=== PATIENT | female | born 1975 | race American Indian/Alaskan Native ===

== ENCOUNTER 2017-03-11 03:50 | Emergency (ER) | payer MEDICAID ==
[2017-03-11 06:03] LABS: Alanine Aminotransferase 11 units/L (7-56); Albumin 4.3 g/dL (3.9-5); Albumin/Globulin Ratio 1.2 %; Alkaline Phosphatase 105 units/L (35-129); Anion Gap 18 mmol/L; Blood Urea Nitrogen 8 mg/dL (7-17); Calcium 9.7 mg/dL (8.4-10.2); Carbon Dioxide 24 mmol/L (22-30); Chloride 102.5 mmol/L (98-107); Glucose 115 mg/dL (65-100); Lipase 29 units/L (13-60); Potassium 4.1 mmol/L (3.6-5.0); Sodium 140 mmol/L (137-145); Total Protein 7.8 g/dL (6.3-8.2)
[2017-03-11 06:07] LABS: Basophils % (Auto) 0.4 % (0.0-1.8); Eosinophils % (Auto) 0.6 % (0.0-4.3); Hematocrit 26.4 % (30.3-42.9); Hemoglobin 7.9 gm/dl (10.1-14.3); Mean Corpuscular HGB Conc 30 % (30-34); Mean Corpuscular Hemoglobin 19 pg (28-32); Mean Corpuscular Volume 65 fl (79-97); Platelet Count 352 K/mm3 (140-440); Red Blood Count 4.05 M/mm3 (3.65-5.03); Red Cell Distribution Width 19.5 % (13.2-15.2); White Blood Count 9.7 K/mm3 (4.5-11.0)
[2017-03-11 07:53] LABS: Bacteria,Urine 2+ /HPF (Negative); Bilirubin,Urine NEG (Negative); Blood,Urine MOD (Negative); Ketones,Urine NEG (Negative); Leukocyte Esterase,Urine NEG (Negative); Mucus,Urine FEW /HPF; Nitrite,Urine NEG (Negative); Urobilinogen,Urine < 2.0 mg/dL (<2.0)
[2017-03-11] MEDS ORDERED: MORPHINE IV ONE (10:55)
[2017-03-11] MEDS ORDERED: NACL 0.9% 1000 ML 2,000 ML IV ONE (10:55)
[2017-03-11] MEDS ORDERED: TORADOL IV ONE (10:55)
[2017-03-11] MEDS ORDERED: ROCEPHIN/NS 1 GM/50 ML 1 GM/50 ML BAG IV ONE (10:55)
[2017-03-11] MEDS ORDERED: ZOFRAN IV ONE (10:55)
--- NOTE | 2017-03-11 10:57 | Emergency Department Report ---
ED General Adult HPI - General Chief complaint: Abdominal Pain Stated complaint: ABD PAIN/VOMITING/BACK PAIN Time Seen by Provider: 03/11/17 10:45 Source: patient, RN notes reviewed Mode of arrival: Ambulatory Limitations: No Limitations - History of Present Illness Initial comments: This is a 41-year-old female. She is previously unknown to me. She does not have a primary care doctor. She does not currently have a director of clinical applications. She reports that she is not . She reports a past medical history of sinusitis, possible irritable bowel syndrome, possible ulcerative colitis (reports that she was being worked up at [place] but has not had a colonoscopy." The patient presents to the ER with back pain, diarrhea, weakness, nausea and vomiting. The back pain is in the right flank, and radius down to the right flank and right lower quadrant. The back pain is achy and sharp. It increases with percussion. It decreases with rest. denies fever. There is no chest pain. There is no shortness of breath. The patient admits to some urinary frequency, but denies dysuria. She denies hematemesis, bright red blood per rectum. She is not certain if she has heavy menstruation. The pain has been present since yesterday. -: Gradual Location: back Radiation: abdomen Severity scale (0 -10): 9 Quality: aching Consistency: constant Improves with: rest Worsens with: movement Associated Symptoms: loss of appetite, malaise, nausea/vomiting, weakness. denies: confusion, chest pain, cough, diaphoresis, fever/chills - Related Data Previous Rx's Medication Instructions Recorded Last Taken Type Ketorolac [Toradol] 10 mg PO Q6H PRN #20 tablet 03/11/17 Unknown Rx Levofloxacin [Levaquin] 750 mg PO QDAY #10 tablet 03/11/17 Unknown Rx Metoclopramide [Reglan] 10 mg PO QID PRN #30 tablet 03/11/17 Unknown Rx Tamsulosin [Flomax] 0.4 mg PO QDAY #30 cap 03/11/17 Unknown Rx oxyCODONE [Roxicodone] 5 mg PO Q6HR PRN #20 tablet 03/11/17 Unknown Rx Allergies Allergy/AdvReac Type Severity Reaction Status Date / Time amoxicillin trihydrate Allergy Shortness Verified 03/11/17 05:00 [From Augmentin] of Breath potassium clavulanate Allergy Shortness Verified 03/11/17 05:00 [From Augmentin] of Breath ED Review of Systems ROS: Stated complaint: ABD PAIN/VOMITING/BACK PAIN Other details as noted in HPI Constitutional: malaise. denies: fever Eyes: denies: vision change ENT: denies: epistaxis Respiratory: denies: cough Cardiovascular: denies: chest pain Gastrointestinal: abdominal pain, nausea Genitourinary: as per HPI Musculoskeletal: back pain Skin: denies: lesions Neurological: weakness Psychiatric: as per HPI ED Past Medical Hx - Past Medical History Previous Medical History?: Yes Hx Kidney Stones: Yes Additional medical history: Irritable Bowel syndrome, chronic sinusitis - Social History Smoking Status: Unknown if ever smoked - Medications Home Medications: Home Medications Medication Instructions Recorded Confirmed Last Taken Type Ketorolac [Toradol] 10 mg PO Q6H PRN #20 tablet 03/11/17 Unknown Rx Levofloxacin [Levaquin] 750 mg PO QDAY #10 tablet 03/11/17 Unknown Rx Metoclopramide [Reglan] 10 mg PO QID PRN #30 tablet 03/11/17 Unknown Rx Tamsulosin [Flomax] 0.4 mg PO QDAY #30 cap 03/11/17 Unknown Rx oxyCODONE [Roxicodone] 5 mg PO Q6HR PRN #20 tablet 03/11/17 Unknown Rx ED Physical Exam - General Limitations: No Limitations General appearance: alert, in no apparent distress - Head Head exam: Present: atraumatic, normocephalic - Eye Eye exam: Present: normal appearance, EOMI. Absent: nystagmus - ENT ENT exam: Present: normal exam, normal orophraynx, mucous membranes moist, normal external ear exam - Neck Neck exam: Present: normal inspection, full ROM. Absent: tenderness, meningismus - Respiratory Respiratory exam: Present: normal lung sounds bilaterally. Absent: respiratory distress, wheezes, rales, rhonchi, stridor, chest wall tenderness, accessory muscle use, decreased breath sounds, prolonged expiratory - Cardiovascular Cardiovascular Exam: Present: regular rate, normal rhythm, normal heart sounds. Absent: bradycardia, tachycardia, irregular rhythm, systolic murmur, diastolic murmur, rubs, gallop - GI/Abdominal GI/Abdominal exam: Present: soft, tenderness, normal bowel sounds, other (there is no right lower quadrant tenderness. There is minimal right flank tenderness. ). Absent: distended, guarding, rebound, rigid, pulsatile mass - Rectal Rectal exam: Present: normal inspection, normal rectal tone, heme (-) stool, other (during rectal examination, I am escorted by nurse ESTELA SALEEM) - External exam: Present: normal external exam Speculum exam: Present: normal speculum exam. Absent: cervical discharge, vaginal bleeding Bi-manual exam: Present: normal bi-manual exam, other (escorted by nurse ESTELA SALEEM). Absent: cervical motion tendernes, adnexal tenderness, adnexal mass, uterine enlargement, uterine tenderness - Extremities Exam Extremities exam: Present: normal inspection, full ROM, normal capillary refill. Absent: tenderness, pedal edema, joint swelling, calf tenderness - Back Exam Back exam: Present: normal inspection, full ROM. Absent: tenderness, CVA tenderness (R), CVA tenderness (L), muscle spasm, paraspinal tenderness, vertebral tenderness - Neurological Exam Neurological exam: Present: alert, oriented X3, other (Extraocular movements intact. Tongue midline. No facial droop. Facial sensation intact to light touch in the V1, V2, V3 distribution bilaterally. 5 and 5 strength in 4 extremities.. Sensation is intact to light touch in 4 extremities.). Absent: motor sensory deficit - Psychiatric Psychiatric exam: Present: normal affect, normal mood - Skin Skin exam: Present: warm, dry, intact, normal color. Absent: rash ED Course Vital Signs 03/11/17 03/11/17 03/11/17 05:02 10:20 10:30 Temperature 98.4 F Pulse Rate 89 Respiratory 20 Rate Blood Pressure 138/96 148/80 Blood Pressure [Right] O2 Sat by Pulse 99 100 100 Oximetry 03/11/17 03/11/17 03/11/17 10:31 10:42 11:08 Temperature 98.5 F Pulse Rate 77 Respiratory 20 20 Rate Blood Pressure 136/87 Blood Pressure 136/87 [Right] O2 Sat by Pulse 100 100 100 Oximetry 03/11/17 03/11/17 03/11/17 11:52 11:53 13:01 Temperature Pulse Rate Respiratory 20 20 Rate Blood Pressure 136/87 Blood Pressure [Right] O2 Sat by Pulse Oximetry 0503/11/17 03/11/17 13:17 13:30 14:30 Temperature Pulse Rate Respiratory 18 Rate Blood Pressure 158/85 138/97 Blood Pressure [Right] O2 Sat by Pulse 100 Oximetry 03/11/17 03/11/17 15:26 15:38 Temperature Pulse Rate Respiratory Rate Blood Pressure 138/97 138/97 Blood Pressure [Right] O2 Sat by Pulse Oximetry - Reevaluation(s) Reevaluation #1: 03/11/17 12:55 CT scan demonstrates obstructing calculus. Patient reexamined. Still having some pain. This hospital does not have urology on-call. I have placed a call for urology consultation through the [facility] Reevaluation #2: 03/11/17 13:25 Case is discussed with [facility] on-call, Dr. Mauri Cee. I have specifically discussed the patient's physical exam findings, laboratory studies, CT scan findings and urinalysis with him. He indicates that females can have bacteria in the urine, but based on her white count, current symptoms, lack of fever, current ability to tolerate liquid feeds, he does not feel that she requires transfer or emergent surgical intervention. He recommends tamsulosin, pain medication, nausea medication. He does not think that antibiotics are necessary per se. Patient is feeling improved. She will be discharged with pain medication, nausea medication, tamsulosin, empiric antibiotics, and she will be instructed to follow-up with urology within the week. Return precautions are reviewed. 03/11/17 18:51 ED Medical Decision Making - Lab Data Result diagrams: 03/11/17 05:03/11/17 05:29 Vital Signs 03/11/17 03/11/17 03/11/17 05:02 10:31 10:42 Temperature 98.4 F 98.5 F Pulse Rate 89 77 Respiratory 20 20 20 Rate Blood Pressure 138/96 Blood Pressure 136/87 [Right] O2 Sat by Pulse 99 100 100 Oximetry Lab Results 03/11/17 03/11/17 03/11/17 Range/Units 05: 05:29 Unknown WBC 9.7 (4.5-11.0) K/mm3 RBC 4.05 (3.65-5.03) M/mm3 Hgb 7.9 L (10.1-14.3) gm/dl Hct 26.4 L (30.3-42.9) % MCV 65 L (79-97) fl MCH 19 L (28-32) pg MCHC 30 (30-34) % RDW 19.5 H (13.2-15.2) % Plt Count 352 (140-440) K/mm3 Lymph % (Auto) 12.0 L (13.4-35.0) % [place] % (Auto) 5.9 (0.0-7.3) % Eos % (Auto) 0.6 (0.0-4.3) % Baso % (Auto) 0.4 (0.0-1.8) % Lymph # 1.2 (1.2-5.4) K/mm3 [place] # 0.6 (0.0-0.8) K/mm3 Eos # 0.1 (0.0-0.4) K/mm3 Baso # 0.0 (0.0-0.1) K/mm3 Seg Neutrophils % 81.1 H (40.0-70.0) % Seg Neutrophils # 7.9 H (1.8-7.7) K/mm3 Sodium 140 (137-145) mmol/L Potassium 4.1 (3.6-5.0) mmol/L Chloride 102.5 (98-107) mmol/L Carbon Dioxide 24 (22-30) mmol/L Anion Gap 18 mmol/L BUN 8 (7-17) mg/dL Creatinine 0.8 (0.7-1.2) mg/dL Estimated GFR > 60 ml/min BUN/Creatinine Ratio 10.00 % Glucose 115 H (65-100) mg/dL Calcium 9.7 (8.4-10.2) mg/dL Total Bilirubin 0.50 (0.1-1.2) mg/dL AST 16 (5-40) units/L ALT 11 (7-56) units/L Alkaline Phosphatase 105 (35-129) units/L Total Protein 7.8 (6.3-8.2) g/dL Albumin 4.3 (3.9-5) g/dL Albumin/Globulin Ratio 1.2 % Lipase 29 (13-60) units/L Urine Color Yellow (Yellow) Urine Turbidity Clear (Clear) Urine pH 6.0 (5.0-7.0) Ur Specific [place] 1.017 (1.003-1.030) Urine Protein 30 mg/dl (Negative) mg/dL Urine Glucose (UA) Neg (Negative) mg/dL Urine Ketones Neg (Negative) mg/dL Urine Blood Mod (Negative) Urine Nitrite Neg (Negative) Urine Bilirubin Neg (Negative) Urine Urobilinogen < 2.0 (<2.0) mg/dL Ur Leukocyte Esterase Neg (Negative) Urine WBC (Auto) 9.0 H (0.0-6.0) /HPF Urine RBC (Auto) 105.0 (0.0-6.0) /HPF U Epithel Cells (Auto) 2.0 (0-13.0) /HPF Urine Bacteria (Auto) 2+ (Negative) /HPF Urine Mucus Few /HPF Urine HCG, Qual Negative (Negative) - Radiology Data Radiology results: pending, report reviewed, image reviewed CT scan of the abdomen and pelvis with IV contrast: There is a 5 x 5 x 6 cm stone noted in the right mid ureter at the level of L2- L3. There is a string right hydronephrosis. Bladder is unremarkable. There is no evidence of pyelonephritis. Appendix not identified. Impression: Mid right ureteral stone as described, mildly obstructing. - Medical Decision Making Differential diagnosis: Renal colic, pyelonephritis, appendicitis, IBS, ulcerative colitis, diverticulitis Assessment and plan: 41-year-old female with flank pain, abdominal pain, nausea , vomiting, weakness, CVA tenderness, does not have classic irritative urinary symptoms, urinalysis equivocal for UTI, probable renal colic. The patient will be treated empirically with ceftriaxone. She reports hives with amoxicillin. As a third generation cephalosporin, ceftriaxone is structurally dissimilar from amoxicillin, and the patient is as likely to have an allergic reaction to a third generation cephalosporin, that she would be to an alternative agent such as a fluoroquinolone. The patient is noted to have a microcytic anemia, there is no history of hematemesis or bright red blood per rectum, this is most likely secondary to menstruation, she does not have any vaginal bleeding or rectal bleeding this time. She can be started on her sulfate for this, as she is essentially asymptomatic. We will obtain a CT scan of the abdomen and pelvis with IV contrast, treat her symptomatically, and reassess. Critical care attestation.: If time is entered above; I have spent that time in minutes in the direct care of this critically ill patient, excluding procedure time. ED Disposition Clinical Impression: Renal colic on right side Disposition: DISCHARGED TO HOME OR SELFCARE Is pt being admited?: No Does the pt Need Aspirin: No Condition: Stable Instructions: Renal Colic (ED) Additional Instructions: Take the pain medication, nausea medication, tamsulosin, antibiotics as directed. Cultures were sent. Results will be available in the next 3-5 days. Have a primary care doctor or urology specialist contact the medical records department to obtain culture results. Follow up in 48 hours for a repeat check. You may follow up with the primary care doctor, urologist, or return to the ER for a repeat check. Return to the ER right away with new pain, worsened pain, migration of pain, fever, chills, confusion, intractable nausea or vomiting, inability to tolerate liquid feeds. Dr. Maldonado is a local urology specialist. Dr. Zia Singh is a local primary care doctor. Prescriptions: Ketorolac [Toradol] 10 mg PO Q6H PRN #20 tablet PRN Reason: Pain Levofloxacin [Levaquin] 750 mg PO QDAY #10 tablet Metoclopramide [Reglan] 10 mg PO QID PRN #30 tablet PRN Reason: Nausea oxyCODONE [Roxicodone] 5 mg PO Q6HR PRN #20 tablet PRN Reason: Pain Tamsulosin [Flomax] 0.4 mg PO QDAY #30 cap Referrals: JUDY CLEVELAND MD [Staff Physician] - 3-5 Days NANY SAHU MD [Staff Physician] - 3-5 Days
--- NOTE | 2017-03-11 11:45 | Cat Scan Report ---
CT SCAN OF THE ABDOMEN AND PELVIS WITH CONTRAST: HISTORY: Right flank pain. TECHNIQUE: Helical CT in 1.25mm intervals following IV contrast. Sagittal and coronal reconstructions. FINDINGS: The liver is normal in size and is without focal defect. No gallstones or biliary dilatation are noted. The spleen and pancreas demonstrate a normal size and attenuation with no evidence of abnormal mass. A 5 x 5 x 6 cm calculus is identified in the mid right ureter at the level of L2-3. There is mild upstream right hydronephrosis. 2 or 3 additional calyceal stones are noted in each kidney measuring up to 3 mm. The bladder is unremarkable. No evidence for pyelonephritis. The adrenal glands are normal. There is no intestinal obstruction or ascites. The appendix is not confidently identified, correlate with surgical history. The abdominal aorta is normal. No abnormalities are identified within the retroperitoneum or mesentery. The uterus and adnexa are unremarkable. There is no evidence of peritoneal air or fluid. There is no evidence of any abnormal masses or fluid collections within the pelvis. No adenopathy is identified. IMPRESSION: Mid right ureteral stone as described, mildly obstructing.
[2017-03-11] MEDS ORDERED: DILAUDID IV ONE (12:56)
[2017-03-11 15:56] VITALS: BP 138/97
== END 2017-03-11 15:55 | disposition home or self-care (01) ==
LOC: ED 03:50
DX: N23 Unspecified renal colic (principal); J32.9 Chronic sinusitis, unspecified; Z88.8 Allergy status to other drugs, medicaments and biological substances
CPT/HCPCS: 36415; 74177; 80053; 81001; 81025; 83690; 85025; 87086; 87210; 87591; 96365; 96375; 99285; J0696; J1170; J1885; J2270; J2405; J7030; Q9967

== ENCOUNTER 2017-10-14 22:27 | Emergency (ER) | payer MEDICAID ==
[2017-10-14 22:38] VITALS: BP 159/95
[2017-10-14] MEDS ORDERED: TORADOL IV ONE (22:54)
[2017-10-14] MEDS ORDERED: ZOFRAN IV ONE (22:55)
[2017-10-14 23:32] LABS: Basophils # (Auto) 0.1 K/mm3 (0.0-0.1); Basophils % (Auto) 0.6 % (0.0-1.8); Eosinophils # (Auto) 0.5 K/mm3 (0.0-0.4); Eosinophils % (Auto) 4.9 % (0.0-4.3); Lymphocytes # (Auto) 3.6 K/mm3 (1.2-5.4); Lymphocytes % (Auto) 39.5 % (13.4-35.0); Mean Corpuscular HGB Conc 29 % (30-34); Monocytes # (Auto) 0.7 K/mm3 (0.0-0.8); Monocytes % (Auto) 8.1 % (0.0-7.3); Platelet Count 458 K/mm3 (140-440); Red Blood Count 4.42 M/mm3 (3.65-5.03); Red Cell Distribution Width 19.7 % (13.2-15.2)
[2017-10-14 23:38] LABS: Hematocrit 29.4 % (30.3-42.9); Hemoglobin 8.6 gm/dl (10.1-14.3); Mean Corpuscular Hemoglobin 20 pg (28-32); Mean Corpuscular Volume 67 fl (79-97)
[2017-10-14 23:59] LABS: BUN/Creatinine Ratio 10; Blood Urea Nitrogen 8 mg/dL (7-17); Calcium 9.4 mg/dL (8.4-10.2); Hemolysis Index 3
[2017-10-15 06:30] LABS: Bilirubin,Urine NEG (Negative); Blood,Urine NEG (Negative); Color,Urine Yellow (Yellow); Hyaline Casts,Urine 1 /LPF; Mucus,Urine 2+ /HPF; Nitrite,Urine NEG (Negative); Protein,Urine <15 mg/dL mg/dL (Negative); Urobilinogen,Urine < 2.0 mg/dL (<2.0)
== END 2017-10-15 19:33 | disposition left against medical advice (07) ==
LOC: ED 22:27
DX: M54.9 Dorsalgia, unspecified (principal); Z53.21 Procedure and treatment not carried out due to patient leaving prior to being seen by health care provider
CPT/HCPCS: 36415; 80048; 81001; 84703; 85025; J1885; J2405

== ENCOUNTER 2018-05-04 19:18 | Emergency (ER) | payer MEDICAID ==
--- NOTE | 2018-05-04 20:53 | XRay Report ---
FINAL REPORT PROCEDURE: XR HAND 3+V RT TECHNIQUE: RIGHT hand radiographs, AP, lateral, and oblique views. CPT 88605-OV HISTORY: Right hand palm pain COMPARISON: No prior studies are available for comparison. FINDINGS: Fracture (s) and/or Dislocation(s): None . Alignment: Normal . Joint space(s): Normal . Soft tissues: Normal . Bone mineralization: Normal . Foreign bodies: None . IMPRESSION: Normal Examination .
[2018-05-04] MEDS ORDERED: MOTRIN PO ONE (21:31)
[2018-05-04] MEDS ORDERED: DELTASONE PO ONE (21:31)
--- NOTE | 2018-05-04 21:31 | Emergency Department Report ---
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 She reports the pain is 9 out of 10 in achy and radiates up her forearm and arm. She denies any shortness of breath or chest pain. Denies any numbness or tingling in. She says she was treated at [facility] 4 weeks ago for tendinitis but she still experiencing pain. Denies any fever or chills or swelling. Denies any restriction in movement to her hands or wrist. She denies any injury. He reports that the pain is worse at night. Pain is exacerbation by movement in her right hand and wrist and no alleviating factors. ED Review of Systems ROS: Stated complaint: RIGHT HAND PAIN/NUMBNESS Other details as noted in HPI Constitutional: denies: chills, fever ENT: denies: ear pain, throat pain Respiratory: denies: cough, shortness of breath, SOB with exertion, SOB at rest , stridor, wheezing Cardiovascular: denies: chest pain, palpitations, edema, syncope Gastrointestinal: denies: abdominal pain, nausea, vomiting, diarrhea Genitourinary: denies: urgency, dysuria, discharge Musculoskeletal: arthralgia. denies: back pain, joint swelling, myalgia Skin: denies: rash, lesions Neurological: denies: headache, weakness, numbness, paresthesias, confusion, abnormal gait, vertigo ED Past Medical Hx - Past Medical History Previous Medical History?: Yes Hx Kidney Stones: Yes Additional medical history: Irritable Bowel syndrome, chronic sinusitis, Anemia - Surgical History Past Surgical History?: No - Family History Family history: hypertension - Social History Smoking Status: Never Smoker Substance Use Type: None - Medications Home Medications: Home Medications Medication Instructions Recorded Confirmed Last Taken Type Ketorolac [Toradol] 10 mg PO Q6H PRN #20 tablet 03/11/17 Unknown Rx Levofloxacin [Levaquin] 750 mg PO QDAY #10 tablet 03/11/17 Unknown Rx Metoclopramide [Reglan] 10 mg PO QID PRN #30 tablet 03/11/17 Unknown Rx Tamsulosin [Flomax] 0.4 mg PO QDAY #30 cap 03/11/17 Unknown Rx oxyCODONE [Roxicodone] 5 mg PO Q6HR PRN #20 tablet 03/11/17 Unknown Rx Ibuprofen [Motrin] 600 mg PO Q8H PRN #12 tablet 05/04/18 Unknown Rx methylPREDNISolone [Medrol Dose 4 mg PO DAILY #1 tab.ds.pk 05/04/18 Unknown Rx Jason] Upper Extremity Exam - Exam General: Vital signs noted. No distress. Alert and acting appropriately. This is a 42-year-old female stable and in no acute distress. Patient is nontoxic in appearance Head and Torso: No HEENT Abnormality, No Neck Tenderness, No Chest/Lungs Abnormality, No Abdominal Tenderness, No Back Tenderness Shoulder Exam: Yes Normal Range of Motion in Shoulder, No Shoulder Tenderness, No Clavicle Tenderness, No Shoulder Deformity, No AC Joint Tenderness Arm Exam: No Arm/Humerus Tenderness, No Arm Deformity Elbow: Yes Normal Range of Motion in Elbow, No Elbow Tenderness, No Elbow Deformity Forearm: No Forearm Tenderness, No Forearm Deformity, No Pain with Pronation, No Pain with Supination Wrist: Yes Normal ROM in Wrist, No Wrist Tenderness, No Wrist Deformity, No Snuffbox Tenderness, No Pain with Axial Thumb Compression Hand: Yes Hand Tenderness (minimal tenderness to right hand.), Yes Normal ROM in Digit(s), No Hand Deformity, No Digit Tenderness, No Digit(s) Deformity, No Tendon Dysfunction (no restriction in movement and no signs of tendon injury) CMS Exam: Yes Normal Distal Pulses (No cce. + 2 pulses in all extremities, no neurovascular compromise), Yes Normal Capillary Refill (less than 3 seconds), Yes Normal Distal Sensation (good color, sensation, temperature and movement to bilateral upper extremities.), No Broken Skin ED Course Vital Signs 05/04/18 19:25 Temperature 98 F Pulse Rate 104 H Respiratory 16 Rate Blood Pressure 155/95 O2 Sat by Pulse 100 Oximetry Vital Signs 05/04/18 05/04/18 19:25 22:10 Temperature 98 F Pulse Rate 104 H 84 Respiratory 16 Rate Blood Pressure 155/95 O2 Sat by Pulse 100 Oximetry - Reevaluation(s) Reevaluation #1: 05/04/18 22:15 Patient given ibuprofen 800 mg by mouth and Deltasone 60 mg by mouth for right hand and wrist pain with positive relief. Right wrist Velcro splint placed and patient will be referred to orthopedic doctor or neurologist for further evaluation. - Orthopedic Splinting/Casting Injury #1 Side: right Upper Extremity Injury Location: wrist, hand Upper Extremity Immobilizer: wrist splint Additional Comments: Patient with good color, sensation, movement and temperature to fingers of right hand status post splint placement. ED Medical Decision Making - Radiology Data Radiology results: report reviewed X-ray three-view right hand to include wrist dictated by radiologist and report reviewed by myself. No fracture or dislocation. No soft tissue swelling. See report below Patient: GAYLE WHITNEY MR#: [id number] : 1975 Acct:[id number] Age/Sex: 42 / F ADM Date: 05/04/18 Loc: ED Attending Dr: Ordering Physician: MARY HAYWOOD MD Date of Service: 05/04/18 Procedure(s): XR hand 3+V RT Accession Number(s): [id number] cc: ED MD YOBANY Fluoro Time In Minutes: FINAL REPORT PROCEDURE: XR HAND 3+V RT TECHNIQUE: RIGHT hand radiographs, AP, lateral, and oblique views. CPT 72876-WQ HISTORY: Right hand palm pain COMPARISON: No prior studies are available for comparison. FINDINGS: Fracture (s) and/or Dislocation(s): None . Alignment: Normal . Joint space(s): Normal . Soft tissues: Normal . Bone mineralization: Normal . Foreign bodies: None . IMPRESSION: Normal Examination . Transcribed By: EMBER Dictated By: PRISCILLA SOMMER MD Electronically Authenticated By: PRISCILLA SOMMER MD Signed Date/Time: 05/04/182047 DD/ 47 TD/TT: 05/04/182047 - Medical Decision Making 42-year-old female here report that she started having right hand and wrist pain is radiating proximally 4 weeks ago. She says she was seen at [facility] and they treated her and told her that she had tendinitis but her pain continues. She denies any trauma. 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 She is here to be evaluated Examined by myself. Her right upper extremity exam is normal except she has mild tenderness without any swelling to her right hand. She has no restriction in movement to her right hand or wrist. She has no redness. She has no change in temperature when comparing to left hand and wrist. No signs of tendinitis. X-ray report of right hand which included wrist dictated by radiologist and report reviewed by myself and patient with normal x-ray without any abnormalities. I discussed diagnosis, x-ray report and treatment plan the patient and she voiced understanding. A/P 1: Arthralgia Right hand and wrist-patient was given prednisone 60 mg by mouth and Motrin 800 mg by mouth and she voiced that pain is better. [place] cold wrist splint placed and she said it feels a lot better. I discussed rice therapy with her along with resting affected area for 72 hours and she voiced understanding. Patient educated on diagnosis, medication, splinted, rice therapy and x-ray report and she voiced understanding. I Discussed with patient that she needs to follow-up with orthopedic doctor and also neurologist for continued right hand and right wrist pain. She voiced understanding and I told her I will refer her to orthopedic doctor or neurologist for further evaluation. PT discharged home in stable condition. Vital signs are stable and she is afebrile. Pain is better with pain medication and wrist splint. Sent to follow -up with orthopedic doctor and neurologist in 3-5 days. Discharged home with prescription for Motrin and Medrol Dosepak - Differential Diagnosis fracture, dislocation, sprain, strain, tendinitis, carpal tunnel, MSK pain Critical care attestation.: If time is entered above; I have spent that time in minutes in the direct care of this critically ill patient, excluding procedure time. ED Disposition Clinical Impression: Arthralgia of multiple sites, Neuralgia Disposition: - TO HOME OR SELFCARE Is pt being admited?: No Does the pt Need Aspirin: No Condition: Stable Instructions: Arthralgia (ED), RICE Therapy (ED) Additional Instructions: Please follow up with orthopedic doctor and neurologist as instructed Medrol Dosepak and Motrin for pain If you have symptoms worsen please return to the emergency room. See discharge instruction in Rice therapy Prescriptions: Ibuprofen [Motrin] 600 mg PO Q8H PRN #12 tablet PRN Reason: Pain methylPREDNISolone [Medrol Dose Jason] 4 mg PO DAILY #1 tab.ds.pk Referrals: PRIMARY CARE, [Primary Care Provider] - 3-5 Days [facility] [Outside] - 3-5 Days FREDDY CHÁVEZ MD [Staff Physician] - 3-5 Days COLLEEN SAMS MD [Staff Physician] - 3-5 Days Forms: Work/School Release Form(ED)
[2018-05-04 22:47] VITALS: BP 155/88
== END 2018-05-04 22:48 | disposition home or self-care (01) ==
LOC: ED 19:18
DX: M79.641 Pain in right hand (principal); M25.531 Pain in right wrist; M79.631 Pain in right forearm; M79.2 Neuralgia and neuritis, unspecified; Z87.442 Personal history of urinary calculi; Z88.1 Allergy status to other antibiotic agents
CPT/HCPCS: 29125; 73130; 99283; J7512

== ENCOUNTER 2019-03-10 09:18 | Emergency (ER) | payer MEDICAID ==
[2019-03-10 09:23] VITALS: BP 140/92
--- NOTE | 2019-03-10 10:49 | Emergency Department Report ---
ED Back Pain/Injury HPI - General Chief Complaint: Back Pain/Injury Stated Complaint: LFT LEG/(R) ARM PAIN/BACK PAIN Time Seen by Provider: 03/10/19 10:02 Source: patient Limitations: No Limitations - History of Present Illness Initial Comments: pt is 43 yo that comes in with vague complaints of achy abd pain and back pain. she has been constipated which is causing bright red blood on toilet tissue. she has taken nothing. denies use of narcotics. states she usually has loose stools. no dysuria. no fever. no cva tenderness. ambulatory and nontoxic taking po Complaint: back pain Similar Symptoms Previously: No Place: home Radiation: none Severity: mild Quality: aching Consistency: constant - Related Data Previous Rx's Medication Instructions Recorded Last Taken Type Bisacodyl [Dulcolax suppos] 10 mg ID QHS #5 supp.rect 03/10/19 Unknown Rx Magnesium Citrate [Citrate of 300 ml PO NOW #1 bottle 03/10/19 Unknown Rx Magnesia] Polyethylene Glycol 3350 [Miralax] 119 gm PO DAILY #1 box 03/10/19 Unknown Rx Allergies Allergy/AdvReac Type Severity Reaction Status Date / Time amoxicillin trihydrate Allergy Shortness Verified 03/10/19 09:20 [From Augmentin] of Breath potassium clavulanate Allergy Shortness Verified 03/10/19 09:20 [From Augmentin] of Breath ED Review of Systems ROS: Stated complaint: LFT LEG/(R) ARM PAIN/BACK PAIN Other details as noted in HPI Comment: All other systems reviewed and negative Gastrointestinal: denies: abdominal pain, nausea, vomiting, diarrhea, constipation Genitourinary: denies: urgency Musculoskeletal: back pain ED Past Medical Hx - Past Medical History Irritable Bowel syndrome, chronic sinusitis, Anemia Family history: hypertension - Social History Drug use: none ED Back Pain Physical Exam - Exam General: Vital signs noted. No distress. Alert and acting appropriately. abd snt no cva tenderness s1s2 lungs clear to auscultation Back/Abdomen: No Abdominal Tenderness, No Perithoracic Tenderness, No Perilumbar Tenderness, No Sacroiliac Tenderness, No Flank Tenderness, No Straight Leg Raise Pain Neuro: Yes Normal Sensation, Yes Normal DTR's, Yes Normal Gait, No Motor Weakness ED Course Vital Signs 03/10/19 09:22 Temperature 98.2 F Pulse Rate 92 H Respiratory 16 Rate Blood Pressure 140/92 O2 Sat by Pulse 98 Oximetry Ed Back Pain Tests - Tests Tests: Normal UA, Abnormal X Rays ED Medical Decision Making - Radiology Data Radiology results: report reviewed, image reviewed - Medical Decision Making Lab Results 03/10/19 Range/Units 10:28 Urine Color Yellow (Yellow) Urine Turbidity Clear (Clear) Urine pH 6.0 (5.0-7.0) Ur Specific [place] 1.018 (1.003-1.030) Urine Protein <15 mg/dl (Negative) mg/dL Urine Glucose (UA) Neg (Negative) mg/dL Urine Ketones Neg (Negative) mg/dL Urine Blood Neg (Negative) Urine Nitrite Neg (Negative) Urine Bilirubin Neg (Negative) Urine Urobilinogen < 2.0 (<2.0) mg/dL Ur Leukocyte Esterase Neg (Negative) Urine WBC (Auto) 1.0 (0.0-6.0) /HPF Urine RBC (Auto) 1.0 (0.0-6.0) /HPF U Epithel Cells (Auto) 3.0 (0-13.0) /HPF Urine Mucus Few /HPF Urine HCG, Qual Negative (Negative) Vital Signs 03/10/19 09:22 Temperature 98.2 F Pulse Rate 92 H Respiratory 16 Rate Blood Pressure 140/92 O2 Sat by Pulse 98 Oximetry xray noted with large stool content ua normal preg neg discussed treatment of constipation with pt she will do as instructed and see pcp next week to be sure she is getting better educated on hydration activity etc. dc home with dc plan of care. Critical care attestation.: If time is entered above; I have spent that time in minutes in the direct care of this critically ill patient, excluding procedure time. ED Disposition Clinical Impression: Constipation Disposition: DC-01 TO HOME OR SELFCARE Is pt being admited?: No Does the pt Need Aspirin: No Condition: Stable Instructions: Constipation (ED), High Fiber Diet (ED) Additional Instructions: med as ordered today avoid narcotics for pain worsens constipation hydrate with a lot of water follow up with pcp referral below high fiber diet Prescriptions: Bisacodyl [Dulcolax suppos] 10 mg ID QHS #5 supp.rect Magnesium Citrate [Citrate of Magnesia] 300 ml PO NOW #1 bottle Polyethylene Glycol 3350 [Miralax] 119 gm PO DAILY #1 box Referrals: BRUCE MCKEON MD [Primary Care Provider] - 3-5 Days Time of Disposition: 12:52
[2019-03-10 10:59] LABS: Bilirubin,Urine NEG (Negative); Blood,Urine NEG (Negative); Color,Urine Yellow (Yellow); Mucus,Urine FEW /HPF; Protein,Urine <15 mg/dL mg/dL (Negative); Urobilinogen,Urine < 2.0 mg/dL (<2.0)
[2019-03-10 11:05] LABS: HCG Qualitative,Urine Negative (Negative)
--- NOTE | 2019-03-10 12:42 | XRay Report ---
AP ABDOMEN: HISTORY: Abdominal pain. There is moderate stool throughout the colon and rectum. The abdominal gas pattern is unremarkable. No masses or organomegaly is identified and there is no gross evidence of free air or fluid. No significant soft tissue calcifications are noted. IMPRESSION: Fecal retention.
== END 2019-03-10 13:01 | disposition home or self-care (01) ==
LOC: ED 09:18
DX: K59.00 Constipation, unspecified (principal); D64.9 Anemia, unspecified; Z87.09 Personal history of other diseases of the respiratory system; Z88.1 Allergy status to other antibiotic agents; Z88.0 Allergy status to penicillin
CPT/HCPCS: 74018; 81001; 81025

== ENCOUNTER 2019-07-21 06:45 | Emergency (ER) | payer MEDICAID ==
--- NOTE | 2019-07-21 07:57 | Emergency Department Report ---
ED Dysuria HPI - HPI Chief Complaint: Abdominal Pain Stated Complaint: NAUSEA FLANK PAIN Time Seen by Provider: 07/21/19 07:37 Duration: 3 Days Location of Discomfort: Flank Severity: Mild Symptoms: Dysuria: Yes, Frequency: No, Suprapubic Pain: No, Flank Pain: Yes, Fever: No, Hematuria: No, Abdominal Pain: No, Previous UTI's: Yes Other History: 44 YO COMES TO ER WITH CO DYSRURIA FOR SEVERAL DAYS. TOOK OTC AZO WITH MINIMAL RELIEF. NO FEVER OR CHILLS. MILD L SIDE BACK PAIN. NO CVA TENDERNESS ON EXAM. AMBULATORY AND NON ILL APPEARING. ED Review of Systems ROS: Stated complaint: NAUSEA FLANK PAIN Other details as noted in HPI Comment: All other systems reviewed and negative ED Past Medical Hx - Past Medical History Previous Medical History?: Yes Hx Kidney Stones: Yes Additional medical history: Irritable Bowel syndrome, chronic sinusitis, Anemia - Surgical History Past Surgical History?: No - Family History Family history: no significant - Social History Smoking Status: Never Smoker Substance Use Type: None - Medications Home Medications: Home Medications Medication Instructions Recorded Confirmed Last Taken Type Nitrofurantoin [place]/M-Cryst 100 mg PO Q12HR #10 capsule 07/21/19 Unknown Rx [Macrobid CAP] Dysuria Exam - Exam General: Vital signs noted. No distress. Alert and acting appropriately. Exam: Yes Moist Mucous Membranes, Yes CVA Tenderness, No Abdominal Tenderness, No Rigidity or Guarding ED Course Vital Signs 07/21/19 06:46 Temperature 97.8 F Pulse Rate 81 Respiratory 18 Rate Blood Pressure 135/101 O2 Sat by Pulse 99 Oximetry ED Medical Decision Making - Medical Decision Making Labs 07/21/19 07:59 Urine Color Yellow Urine Turbidity Clear Urine pH 5.0 Ur Specific [place] 1.006 Urine Protein <15 mg/dl Urine Glucose (UA) Neg Urine Ketones Neg Urine Blood Neg Urine Nitrite Pos Urine Bilirubin Neg Urine Urobilinogen < 2.0 Ur Leukocyte Esterase Neg Urine WBC (Auto) < 1.0 Urine RBC (Auto) < 1.0 Urine Bacteria (Auto) 1+ Urine HCG, Qual Negative UA NOTED NO FEVER NON ILL NON TOXIC TAKING PO AMBULATORY MEDICATED IN ER AND DC HOME WITH DC PALN OF CARE AND FOLLOW UP WITH PCP Vital Signs 07/21/19 07/21/19 06:46 08:48 Temperature 97.8 F Pulse Rate 81 88 Respiratory 18 16 Rate Blood Pressure 135/101 Blood Pressure 138/96 [Left] O2 Sat by Pulse 99 100 Oximetry - Differential Diagnosis RO UTI/PYLO Critical care attestation.: If time is entered above; I have spent that time in minutes in the direct care of this critically ill patient, excluding procedure time. ED Disposition Clinical Impression: UTI (urinary tract infection), Elevated blood pressure reading Disposition: DC- TO HOME OR SELFCARE Is pt being admited?: No Does the pt Need Aspirin: No Condition: Stable Additional Instructions: motrin with food for pain or tylenol minimize goodys for it can upset your stomach hydrate well with water antibiotic as ordered today until gone and follow up with pcp to be sure this goes away monitor your blood pressure; it was high today in ER Prescriptions: Nitrofurantoin [place]/M-Cryst [Macrobid CAP] 100 mg PO Q12HR #10 capsule Referrals: GEORGIA BARKLEY MD [Staff Physician] - 3-5 Days Time of Disposition: 07:57
[2019-07-21 08:34] LABS: Bacteria,Urine 1+ /HPF (Negative); Bilirubin,Urine NEG (Negative); Blood,Urine NEG (Negative); Color,Urine Yellow (Yellow); HCG Qualitative,Urine Negative (Negative); Protein,Urine <15 mg/dL mg/dL (Negative); RBC,Urine < 1.0 /HPF (0.0-6.0); Urobilinogen,Urine < 2.0 mg/dL (<2.0); WBC,Urine < 1.0 /HPF (0.0-6.0)
[2019-07-21 08:49] VITALS: BP 138/96
== END 2019-07-21 08:48 | disposition home or self-care (01) ==
LOC: ED 06:45
DX: N39.0 Urinary tract infection, site not specified (principal); I10 Essential (primary) hypertension; Z88.1 Allergy status to other antibiotic agents; Z88.8 Allergy status to other drugs, medicaments and biological substances
CPT/HCPCS: 81001; 81025; 99283

== ENCOUNTER 2019-10-28 10:59 | Emergency (ER) | payer MEDICAID ==
[2019-10-28 11:32] VITALS: BP 150/86
--- NOTE | 2019-10-28 11:35 | Emergency Department Report ---
Blank Doc - Documentation Documentation: 44-year-old female that presents with left arm pain with radiation to chest and some SOB. STated that pain started with left arm. Denies any injuries. Stated pain is worse with movement and resolved with rest. This initial assessment/diagnostic orders/clinical plan/treatment(s) is/are subject to change based on patient's health status, clinical progression and re- assessment by fellow clinical providers in the ED. Further treatment and workup at subsequent clinical providers discretion. Patient/guardians urged not to elope from the ED as their condition may be serious if not clinically assessed and managed. Initial orders include: 1- Patient sent to [facility] for further evaluation and treatment 2- EKG 3- CXR
--- NOTE | 2019-10-28 12:25 | XRay Report ---
CHEST 2 VIEWS INDICATION: sob. COMPARISON: None FINDINGS: Support devices: None. Heart: Within normal limits. Lungs/pleura: No acute air space or interstitial disease. No pneumothorax. Additional findings: None. IMPRESSION: 1. No acute findings. Signer Name: Dimas Sherman MD Signed: 10/28/2019 12:21 PM Workstation Name: [id number]
--- NOTE | 2019-10-28 13:40 | Emergency Department Report ---
ED Extremity Problem HPI - General Chief complaint: Extremity Problem,Nontraumatic Stated complaint: LEFT BREAST/ARM PAIN/4XDAYS Time Seen by Provider: 10/28/19 11:32 Source: patient Mode of arrival: Ambulatory Limitations: No Limitations - History of Present Illness Initial comments: 44 YO COMES TO ER WITH RADICULAR PAIN FROM CERVICAL SPINE TO LEFT THUMB. STARTED ON XMAS. NO CP. NO SOB. DID NOT SEE PCP. OTHERWISE HEALTHY. - Related Data Previous Rx's Medication Instructions Recorded Last Taken Type Cyclobenzaprine [Flexeril] 10 mg PO TID PRN #10 tablet 10/28/19 Unknown Rx predniSONE [Deltasone] 20 mg PO DAILY #5 tablet 10/28/19 Unknown Rx Allergies Allergy/AdvReac Type Severity Reaction Status Date / Time amoxicillin trihydrate Allergy Shortness Verified 03/10/19 09:20 [From Augmentin] of Breath potassium clavulanate Allergy Shortness Verified 03/10/19 09:20 [From Augmentin] of Breath ED Review of Systems ROS: Stated complaint: LEFT BREAST/ARM PAIN/4XDAYS Other details as noted in HPI Comment: All other systems reviewed and negative ED Past Medical Hx - Past Medical History Previous Medical History?: Yes Hx Kidney Stones: Yes Additional medical history: Irritable Bowel syndrome, chronic sinusitis, Anemia - Surgical History Past Surgical History?: No - Family History Family history: no significant - Social History Smoking Status: Never Smoker - Medications Home Medications: Home Medications Medication Instructions Recorded Confirmed Last Taken Type Cyclobenzaprine [Flexeril] 10 mg PO TID PRN #10 tablet 10/28/19 Unknown Rx predniSONE [Deltasone] 20 mg PO DAILY #5 tablet 10/28/19 Unknown Rx ED Physical Exam - General Limitations: No Limitations General appearance: alert, in no apparent distress - Head Head exam: Present: atraumatic, normocephalic - Eye Eye exam: Present: normal appearance - ENT ENT exam: Present: mucous membranes moist - Neck Neck exam: Present: normal inspection - Respiratory Respiratory exam: Present: normal lung sounds bilaterally. Absent: respiratory distress - Cardiovascular Cardiovascular Exam: Present: regular rate, normal rhythm. Absent: systolic murmur, diastolic murmur, rubs, gallop - GI/Abdominal GI/Abdominal exam: Present: soft, normal bowel sounds - Extremities Exam Extremities exam: Present: normal inspection - Back Exam Back exam: Present: normal inspection - Neurological Exam Neurological exam: Present: alert, oriented X3 - Psychiatric Psychiatric exam: Present: normal affect, normal mood - Skin Skin exam: Present: warm, dry, intact, normal color. Absent: rash ED Course Vital Signs 10/28/19 11:11 Temperature 98.0 F Pulse Rate 95 H Respiratory 16 Rate Blood Pressure 150/86 O2 Sat by Pulse 100 Oximetry ED Medical Decision Making - EKG Data EKG shows normal: sinus rhythm Rate: normal - EKG Data When compared to previous EKG there are: no significant change Interpretation: normal EKG - Radiology Data Radiology results: report reviewed, image reviewed - Medical Decision Making EKG NAP XRAY NORMAL NO CP NO SOB NO PMH NO HOME RX NO PCP NON OBESE NON SMOKING LEFT ARM RADICULAR PAIN FULL ROM ARM AND NECK PAIN STARTED CERVICAL AREA AND RADIATES DOWN ARM TO THUMB. NO TRAUMA NO FEVER WILL TREAT MEDICALLY AND HAVE PT FOLLOW UP WITH DR CHÁVEZ VS NORMAL DOCUMENTED BY RN Vital Signs 10/28/19 11:11 Temperature 98.0 F Pulse Rate 95 H Respiratory 16 Rate Blood Pressure 150/86 O2 Sat by Pulse 100 Oximetry - Differential Diagnosis RADICULAR PAIN Critical care attestation.: If time is entered above; I have spent that time in minutes in the direct care of this critically ill patient, excluding procedure time. ED Disposition Clinical Impression: Radiculopathy Disposition: -01 TO HOME OR SELFCARE Is pt being admited?: No Does the pt Need Aspirin: No Condition: Stable Instructions: Cervical Radiculopathy (ED) Additional Instructions: MEDS WE DISCUSSED TODAY STRETCHING FOLLOW UP WITH DR CHÁVEZ WARM BATHS MAY HELP Prescriptions: predniSONE [Deltasone] 20 mg PO DAILY #5 tablet Cyclobenzaprine [Flexeril] 10 mg PO TID PRN #10 tablet PRN Reason: Muscle Spasm Referrals: FREDDY CHÁVEZ MD [Staff Physician] - 3-5 Days Time of Disposition: 13:39
== END 2019-10-28 14:09 | disposition home or self-care (01) ==
LOC: ED 10:59
DX: M54.12 Radiculopathy, cervical region (principal); N64.4 Mastodynia; M79.602 Pain in left arm; Z88.8 Allergy status to other drugs, medicaments and biological substances; Z87.442 Personal history of urinary calculi; Z86.2 Personal history of diseases of the blood and blood-forming organs and certain disorders involving the immune mechanism; Z79.899 Other long term (current) drug therapy
CPT/HCPCS: 71046; 93005; 93010

== ENCOUNTER 2020-08-07 20:59 | Emergency (ER) | payer SELFPAY ==
[2020-08-08] MEDS ORDERED: KETOROLAC 60 MG/2 ML INJ IM ONE (00:08)
--- NOTE | 2020-08-08 00:17 | Emergency Department Report ---
ED Headache HPI - General Chief Complaint: Neuro Symptoms/Deficit Stated Complaint: HEADACHE, LUMP ON TOP OF HEAD Time Seen by Provider: 08/07/20 23:48 Source: patient Exam Limitations: no limitations - History of Present Illness Initial Comments: 45-year-old female with iron deficiency anemia recent diagnosis of Alegre's palsy presents to the hospital complaining of persistent headache despite taking recently prescribed medication. 1 week ago on the patient states she was vacationing in the [facility] in [place] but has headache and shortness of breath and therefore left prematurely due to her symptoms. 5 days ago she started to have left eye irritation and burning sensation. 3 days ago she had sudden onset of global excruciating headache that spontaneously resolved and recurred at 9 PM. Patient then that evening at [facility] and had an unremarkable CT head, was told that she was here had a hemoglobin of 7.7 and was diagnosed with left facial Alegre's palsy. She was discharged on Fioricet and Valtrex. Patient presents here concerned because she is having persistent headache and now having right-sided eye irritation. Headache is not as intense as it was on Saturday but the Fioricet, [id number] Excedrin Migraine, Goody powders, and Aleve are not completely alleviating her symptoms. (Patient has been taking the Fioricet less due to fear of physical dependence after reading possible adverse reactions). She also states her blood pressure has been running higher than normal during her ED visits but she admits to having pain during these visits. She states her blood pressures typically normal when she is not in pain. She denies any new neuro deficit. She denies significant shortness of breath with exertion or lightheadedness. She does have history of chronic iron deficiency anemia with urges to eat ice and is currently taking her iron pills as recommended by the treating MD at [facility]. She also complains of localized tender swelling to her right anterior scalp after removing her tight tree yamilka. No drainage, fever, or neck stiffness reported. Patient does not have a primary care doctor. Allergies/Adverse Reactions: Allergies amoxicillin trihydrate [From Augmentin] Allergy (Verified 03/10/19 09:20) Shortness of Breath potassium clavulanate [From Augmentin] Allergy (Verified 03/10/19 09:20) Shortness of Breath Home Medications: Ambulatory Orders Cyclobenzaprine [Flexeril] 10 mg PO TID PRN #10 tablet 01/15/20 predniSONE [Deltasone] 20 mg PO DAILY #5 tablet 10/28/19 HYDROcodone/APAP 5-325 [[place] 5/325] 1 each PO Q6HR PRN #14 tablet 08/08/20 Peg 400/Hypromellose/Glycerin [Eye Drop Tears] 1 - 2 drop OP PRN PRN #1 bottle 08/08/20 predniSONE [Deltasone] 10 mg PO .TAPER #48 tab 08/08/20 ED Review of Systems ROS: Stated complaint: HEADACHE, LUMP ON TOP OF HEAD Other details as noted in HPI Comment: All other systems reviewed and negative ED Past Medical Hx - Past Medical History Previous Medical History?: Yes Hx Kidney Stones: Yes Additional medical history: Irritable Bowel syndrome, chronic sinusitis, Anemia - Surgical History Past Surgical History?: No - Social History Smoking Status: Never Smoker - Medications Home Medications: Home Medications Medication Instructions Recorded Confirmed Last Taken Type Cyclobenzaprine [Flexeril] 10 mg PO TID PRN #10 tablet 10/28/19 Unknown Rx predniSONE [Deltasone] 20 mg PO DAILY #5 tablet 10/28/19 Unknown Rx HYDROcodone/APAP 5-325 [[place] 1 each PO Q6HR PRN #14 tablet 08/08/20 Unknown Rx 5/325] Peg 400/Hypromellose/Glycerin [Eye 1 - 2 drop OP PRN PRN #1 bottle 08/08/20 Unknown Rx Drop Tears] predniSONE [Deltasone] 10 mg PO .TAPER #48 tab 08/08/20 Unknown Rx ED Physical Exam - General Limitations: No Limitations - Other Other exam information: General: No acute distress Head: Atraumatic, patient has a localized area of swelling approximately 1 cm to the right anterior scalp. Mild tenderness to palpation without drainage, redness, or warmth. Eyes: normal appearance, no erythema or swelling ENT: Moist mucous membranes, left upper and lower facial partial paralysis. Patient unable to raise left eyebrow but able to close left eye. Resting facial droop to left side noted with diminished movement with smile. No paralysis noted on the right side of the face Neck: Normal appearance, no midline tenderness, no nuchal rigidity, supple Chest: Clear to auscultation bilaterally CV: Regular rate and rhythm Abdomen: Soft, normal bowel sounds, nontender, nondistended, no rebound or guarding Back: Normal inspection Extremity: Normal inspection, full range of motion Neuro: Alert O x 3, no facial asymmetry, speech clear, 5/5 upper lower extremity strength with sensation intact Psych: Appropriate behavior Skin: No rash ED Course Vital Signs 08/07/20 08/08/20 22:32 00:44 Temperature 98.5 F 98.3 F Pulse Rate 105 H Respiratory 16 18 Rate Blood Pressure 147/96 Blood Pressure 134/95 [Right] O2 Sat by Pulse 100 100 Oximetry ED Medical Decision Making - Medical Decision Making Patient presents here worried that her Alegre's palsy was spreading to the right and due to her symptoms of right eye irritation and persistent headache that is more right-sided and frontal. Patient does not endorse nuchal rigidity or neck pain patient. Patient has had snce Saturday but less severe than onset. She reports an unremarkable CT head that was performed 3 days ago when she had more severe pain. I discussed this with patient and through shared decision making she declined additional CT imaging. She denies any new neurologic deficits. On exam patient has signs of Alegre's palsy in the left without right-sided involvement. No other neurologic deficit noted. Patient received Toradol in the ED for pain. Narcotic pain medication will be provided for home For Alegre's palsy Lacri-Lube and prednisone will be added to her regimen. Critical Care Time: No Critical care attestation.: If time is entered above; I have spent that time in minutes in the direct care of this critically ill patient, excluding procedure time. ED Disposition Clinical Impression: Alegre's palsy, Headache, History of iron deficiency anemia Disposition: TO HOME OR SELFCARE Is pt being admited?: No Does the pt Need Aspirin: No Condition: Stable Instructions: Alegre Palsy (ED), Iron Rich Diet (ED), Iron Deficiency Anemia (ED), Acute Headache (ED) Additional Instructions: Take the medication as prescribed. Follow-up with your doctor or doctor/clinic provided. Return if symptoms worsen as indicated by your discharge instructions. Do not take [place] and Fioricet together because it may cause excessive drowsiness Prescriptions: predniSONE [Deltasone] 10 mg PO .TAPER #48 tab Peg 400/Hypromellose/Glycerin [Eye Drop Tears] 1 - 2 drop OP PRN PRN #1 bottle PRN Reason: Dry Eye(S) HYDROcodone/APAP 5-325 [[place] 5/325] 1 each PO Q6HR PRN #14 tablet PRN Reason: Pain Referrals: COLLEEN SAMS MD [Staff Physician] - 3-5 Days (Neurologist) LORENE EVERETT MD [Staff Physician] - 3-5 Days (Primary care doctor) ANTONI LEMONS MD [Primary Care Provider] - 3-5 Days (Primary care clinic) Time of Disposition: 01:07
[2020-08-08 00:53] VITALS: BP 134/95
== END 2020-08-08 01:56 | disposition home or self-care (01) ==
LOC: ED 20:59
DX: G51.0 Bell's palsy (principal); R51.9 Headache, unspecified; D64.9 Anemia, unspecified; Z79.899 Other long term (current) drug therapy; Z88.0 Allergy status to penicillin; Z88.8 Allergy status to other drugs, medicaments and biological substances; Z87.442 Personal history of urinary calculi
CPT/HCPCS: 96372; 99281; J1885

== ENCOUNTER 2020-09-10 12:07 | Emergency (ER) | payer SELFPAY ==
[2020-09-10 12:12] VITALS: BP 145/98
[2020-09-10] MEDS ORDERED: IBUPROFEN 600 MG TAB PO ONE (12:47)
[2020-09-10 13:32] LABS: Mean Corpuscular HGB Conc 30 % (30-34); Platelet Count 373 K/mm3 (140-440)
[2020-09-10 13:38] LABS: Hematocrit 27.9 % (30.3-42.9); Hemoglobin 8.3 gm/dl (10.1-14.3); Mean Corpuscular Volume 65 fl (79-97); Red Cell Distribution Width 26.5 % (13.2-15.2)
[2020-09-10 13:43] LABS: Alanine Aminotransferase 11 units/L (7-56); Albumin 4.2 g/dL (3.9-5); BUN/Creatinine Ratio 9; Blood Urea Nitrogen 7 mg/dL (7-17); Calcium 9.7 mg/dL (8.4-10.2); Hemolysis Index 1
--- NOTE | 2020-09-10 14:08 | Emergency Department Report ---
ED Headache HPI - General Chief Complaint: Headache Stated Complaint: SOB Time Seen by Provider: 09/10/20 12:34 - History of Present Illness Initial Comments: The patient was evaluated in the emergency department for symptoms described in the history of present illness. He/she was evaluated in the context of the global COVID-19 pandemic, which necessitated consideration that the patient might be at risk for infection with the virus that causes COVID-19. Institutional protocols and algorithms that pertain to the evaluation of patients at risk for COVID-19 are in a state of rapid change based on information released by regulatory bodies including the CDC and federal and state organizations. These policies and algorithms were followed during the patient's care in the emergency department. Please note that these policies, procedures and recommendations changed on a rapid basis. 45-year-old -[place] female comes into the emergency room complaining of shortness of breathing and a headache. 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 She states that her headaches had improved as she was taking she believes [place] prednisone. She states that the glass when days she started to have intermittent headaches. She states her not that bad but the chest present. Patient reports she feels her Alegre's palsy is improving and getting back to her baseline. She reports her shortness of breath is worse with extreme exertion as inclining up stairs. She does admit to having Covid b ack in April but is constantly getting Covid testing last test was 3 days ago and was negative. Patient denies any fever no chills no nausea no vomiting no chest pain. She denies any weaknesses. Her last menstrual period was 08/12/2020 she is 4 para 4 Timing/Duration: waxing and waning Quality: mild Head Injury Location: global Recent Head Trauma: occasional headaches Associated Symptoms: denies: fatigue, facial pain, fever/chills, loss of consciousness, nausea/vomiting, nasal congestion, nasal drainage, numbness in legs/feet, seizures, sinus infection, stiff neck, vision changes, weakness Allergies/Adverse Reactions: Allergies amoxicillin trihydrate [From Augmentin] Allergy (Verified 03/10/19 09:20) Shortness of Breath potassium clavulanate [From Augmentin] Allergy (Verified 03/10/19 09:20) Shortness of Breath Home Medications: Ambulatory Orders Cyclobenzaprine [Flexeril] 10 mg PO TID PRN #10 tablet 10/28/19 predniSONE [Deltasone] 20 mg PO DAILY #5 tablet 10/28/19 HYDROcodone/APAP 5-325 [[place] 5/325] 1 each PO Q6HR PRN #14 tablet 08/08/20 Peg 400/Hypromellose/Glycerin [Eye Drop Tears] 1 - 2 drop OP PRN PRN #1 bottle 08/08/20 predniSONE 10 mg PO .TAPER #48 tab 08/08/20 Butalb/Acetaminophen/Caffeine [Fioricet 50-300-40 mg CAP] 1 cap PO Q6HR PRN #20 cap 09/10/20 Neomy/Polymyx B/Hc Otic Susp [Cortisporin (Otic) Susp] 4 drops TID 10 Days #1 bottle 09/10/20 ED Review of Systems ROS: Stated complaint: SOB Other details as noted in HPI Comment: All other systems reviewed and negative ED Past Medical Hx - Past Medical History Hx Kidney Stones: Yes Additional medical history: Irritable Bowel syndrome, chronic sinusitis, Anemia - Surgical History Past Surgical History?: No - Social History Smoking Status: Never Smoker - Medications Home Medications: Home Medications Medication Instructions Recorded Confirmed Last Taken Type Cyclobenzaprine [Flexeril] 10 mg PO TID PRN #10 tablet 10/28/19 Unknown Rx predniSONE [Deltasone] 20 mg PO DAILY #5 tablet 10/28/19 Unknown Rx HYDROcodone/APAP 5-325 [[place] 1 each PO Q6HR PRN #14 tablet 08/08/20 Unknown Rx 5/325] Peg 400/Hypromellose/Glycerin [Eye 1 - 2 drop OP PRN PRN #1 bottle 08/08/20 Unknown Rx Drop Tears] predniSONE 10 mg PO .TAPER #48 tab 08/08/20 Unknown Rx Butalb/Acetaminophen/Caffeine 1 cap PO Q6HR PRN #20 cap 09/10/20 Unknown Rx [Fioricet 50-300-40 mg CAP] Neomy/Polymyx B/Hc Otic Susp 4 drops TID 10 Days #1 bottle 09/10/20 Unknown Rx [Cortisporin (Otic) Susp] ED Physical Exam - General Limitations: No Limitations General appearance: alert, in no apparent distress - Head Head exam: Present: atraumatic, normocephalic - ENT ENT exam: Present: TM's normal bilaterally - Expanded ENT Exam Expanded TM/Canal exam: Canal Tenderness: Left TM (swelling) Mouth exam: Present: normal external inspection - Neck Neck exam: Present: normal inspection, full ROM - Respiratory Respiratory exam: Present: normal lung sounds bilaterally. Absent: respiratory distress - Cardiovascular Cardiovascular Exam: Present: regular rate, normal rhythm. Absent: systolic murmur, diastolic murmur, rubs, gallop - Back Exam Back exam: Present: normal inspection, full ROM - Neurological Exam Neurological exam: Present: alert, oriented X3, normal gait - Expanded Neurological Exam Expanded Cranial nerves: EOM's Intact: Normal, Gag Reflex: Normal, Tongue Deviation: Normal, Nystagmus: Normal, Facial Sensation: Normal, Facial Palsy with Forehead Movement: Normal, Facial Palsy without Forehead Movement: Normal Cerebellar function: Finger to Nose: Normal, Heel to Cottrell: Normal, Romberg: Normal Upper motor neuron: Benjamin Neglect: Normal, Pronator Drift: Normal, Sensory Extinction: Normal Sensory exam: Upper Extremity Light Touch: Normal, Upper Extremity Pin Prick: Normal, Upper Extremity Temperature: Normal, UE 2 Point Discrimination: Normal, Lower Extremity Light Touch: Normal, Lower Extremity Pin Prick: Normal, Lower Extremity Temperature: Normal, LE 2 Point Discrimination: Normal Motor strength exam: RUE: 4, LUE: 4, RLE: 4, LLE: 4 Best Eye Response (Murphy): (4) open spontaneously Best Motor Response (Murphy): (6) obeys commands Best Verbal Response (Murphy): (5) oriented Murphy Total: 15 - Psychiatric Psychiatric exam: Present: normal affect, normal mood - Skin Skin exam: Present: warm, dry, intact, normal color. Absent: rash ED Course Vital Signs 09/10/20 12:11 Temperature 98.2 F Pulse Rate 108 H Respiratory 14 Rate Blood Pressure 145/98 O2 Sat by Pulse 100 Oximetry ED Medical Decision Making - Lab Data Result diagrams: 09/10/20 13:00 09/10/20 13:00 - Medical Decision Making 45-year-old -[place] female comes into the emergency room complaining of shortness of breathing and a headache. 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 She states that her headaches had improved as she was taking she believes [place] prednisone. She states that the glass when days she started to have intermittent headaches. She states her not that bad but the chest present. Patient reports she feels her Alegre's palsy is improving and getting back to her baseline. She reports her shortness of breath is worse with extreme exertion as inclining up stairs. She does admit to having Covid back in April but is constantly getting Covid testing last test was 3 days ago and was negative. Patient denies any fever no chills no nausea no vomiting no chest pain. She denies any weaknesses. Her last menstrual period was 08/12/2020 she is 4 para 4 Critical care attestation.: If time is entered above; I have spent that time in minutes in the direct care of this critically ill patient, excluding procedure time. ED Disposition Clinical Impression: Headache Qualifiers: Headache chronicity pattern: acute headache Intractability: intractable Left otitis externa Qualifiers: Otitis externa type: swimmer's ear Chronicity: acute Qualified Code(s): H60.332 - Swimmer's ear, left ear Disposition: - TO HOME OR SELFCARE Is pt being admited?: No Does the pt Need Aspirin: No Condition: Stable Instructions: Otitis Externa, [id number] Additional Instructions: Please take medications as prescribed. Follow-up with your primary care provider or neurologist turn back to the emergency room if any worsening symptoms. Prescriptions: Neomy/Polymyx B/Hc Otic Susp [Cortisporin (Otic) Susp] 4 drops TID 10 Days #1 bottle Butalb/Acetaminophen/Caffeine [Fioricet 50-300-40 mg CAP] 1 cap PO Q6HR PRN #20 cap PRN Reason: Headache Referrals: PRIMARY CARE, [Primary Care Provider] - 3-5 Days GAURI BEACH II, MD [Staff Physician] - 3-5 Days Forms: Work/School Release Form(ED)
[2020-09-10 14:48] LABS: Anisocytosis 3+; Band Neutrophils # (Manual) 0.1 K/mm3; Basophils % (Manual) 0 % (0.0-1.8); Hypochromasia 2+; Total Cells Counted 100
[2020-09-10 14:49] LABS: Ovalocytes Few; Platelet Estimate Consistent w Auto; Tear Drop Cells Few
== END 2020-09-10 14:32 | disposition home or self-care (01) ==
LOC: ED 12:07
DX: R51.9 Headache, unspecified (principal); H60.332 Swimmer's ear, left ear; Z88.1 Allergy status to other antibiotic agents; Z88.6 Allergy status to analgesic agent; Z86.2 Personal history of diseases of the blood and blood-forming organs and certain disorders involving the immune mechanism
CPT/HCPCS: 36415; 80053; 85007; 85025; 99283

== ENCOUNTER 2020-09-14 10:46 | Emergency (ER) | payer SELFPAY ==
[2020-09-14 11:38] VITALS: BP 150/91
--- NOTE | 2020-09-14 12:41 | Emergency Department Report ---
Chief Complaint: Earache Stated Complaint: LEFT EAR PAIN - HPI History of Present Illness: 45-year-old -[place] female that I had the pleasure of seeing before presents to the emergency room for concern of allergic reaction or side effect of Fioricet. Patient does state that she took the first that she felt a little higher dizzy but that improved and her pain did go away from her headache. Patient also complains of left side trapezius pain. Patient does work as a [employer]. Soon has taken Tylenol recommend ibuprofen. Patient denies any injury - Exam Vital Signs: Vital Signs 09/14/20 11:35 Temperature 98.3 F Pulse Rate 86 Respiratory 18 Rate Blood Pressure 150/91 O2 Sat by Pulse 100 Oximetry Physical Exam: Gen: alert oriented NAD Cardic: regular rate and rhythm no murmurs appreciated Resp: Clear to auscultation bilateral no wheezing no rales or rhonchi. Abdomen: Soft nontender nondistended normal bowel sounds. Neck: Full range of motion left side trapezius tenderness. Shoulders full range of motion no arm weakness. MSE screening note: Focused history and physical exam performed. Due to findings the following was ordered: 45-year-old -[place] female that I had the pleasure of seeing before presents to the emergency room for concern of allergic reaction or side effect of Fioricet. Patient does state that she took the first that she felt a little higher dizzy but that improved and her pain did go away from her headache. Patient also complains of left side trapezius pain. Patient does work as a [employer]. Soon has taken Tylenol recommend ibuprofen. Patient denies any injury ED Disposition for MSE Disposition: Z-07 MED SCREENING EXAM-LEFT Is pt being admited?: No Does the pt Need Aspirin: No Condition: Stable Additional Instructions: Warm heat Tylenol ibuprofen try [id number] liniments for pain. Increase your water intake and rest warm heat. Referrals: LORENE EVERETT MD [Staff Physician] - 3-5 Days Forms: Work/School Release Form(ED)
== END 2020-09-14 12:51 | disposition left against medical advice (07) ==
LOC: ED 10:46
DX: H92.02 Otalgia, left ear (principal); Z53.21 Procedure and treatment not carried out due to patient leaving prior to being seen by health care provider

== ENCOUNTER 2022-01-27 11:58 | Emergency (ER) | payer SELFPAY ==
[2022-01-27 14:21] VITALS: BP 144/104
--- NOTE | 2022-01-27 17:21 | Emergency Department Report ---
- General Chief Complaint: Abdominal Pain Stated Complaint: SOB/LEFT FLANK PAIN Source: patient Mode of arrival: Ambulatory Limitations: No Limitations - History of Present Illness Initial Comments: 46-year-old female presents to the ED complaining headache left earache x 2 weeks and worsen over the last several days . She states that she has a history Alegre palsy and allergies. Patient states she is currently taking Claritin for allergies. Patient states that when her allergies get bad that her Alegre palsy normally flares up. She states that she has body aches, cough ,loss of voice that is worsening in the a.m.. Patient states taking [id number] sinus medication without any relief. Patient is alert and oriented x3. No acute distress noted. No ill appearance noted MD Complaint: cough, sore throat, nasal congestion, sinus pain Onset/Timin -: week(s) Severity: moderate Severity scale (0 -10): 6 Quality: aching Consistency: intermittent Improves With: nothing Worsens With: changing head position Treatments Prior to Arrival: "cold medicine" - Related Data Previous Rx's Medication Instructions Recorded Last Taken Type Cyclobenzaprine [Flexeril] 10 mg PO TID PRN #10 tablet 10/28/19 Unknown Rx predniSONE [Deltasone] 20 mg PO DAILY #5 tablet 10/28/19 Unknown Rx HYDROcodone/APAP 5-325 [[place] 1 each PO Q6HR PRN #14 tablet 08/08/20 Unknown Rx 5/325] Peg 400/Hypromellose/Glycerin [Eye 1 - 2 drop OP PRN PRN #1 bottle 08/08/20 Unknown Rx Drop Tears] predniSONE 10 mg PO .TAPER #48 tab 08/08/20 Unknown Rx Butalb/Acetaminophen/Caffeine 1 cap PO Q6HR PRN #20 cap 09/10/20 Unknown Rx [Fioricet 50-300-40 mg CAP] Neomy/Polymyx B/Hc Otic Susp 4 drops TID 10 Days #1 bottle 09/10/20 Unknown Rx [Cortisporin (Otic) Susp] DOXYCYCLINE Hyclate [Vibramycin 100 mg PO Q12HR 10 Days #20 capsule 01/27/22 Unknown Rx CAP] Valacyclovir HCl [Valtrex] 1,000 mg PO TID 7 Days #21 tab 01/27/22 Unknown Rx predniSONE [Deltasone] 50 mg PO QDAY 7 Days #7 tab 01/27/22 Unknown Rx Allergies Allergy/AdvReac Type Severity Reaction Status Date / Time amoxicillin trihydrate Allergy Shortness Verified 03/10/19 09:20 [From Augmentin] of Breath potassium clavulanate Allergy Shortness Verified 03/10/19 09:20 [From Augmentin] of Breath ED Review of Systems ROS: Stated complaint: SOB/LEFT FLANK PAIN Other details as noted in HPI Constitutional: denies: chills, fever Eyes: denies: eye pain, eye discharge, vision change ENT: denies: ear pain, throat pain Respiratory: cough. denies: shortness of breath, wheezing Cardiovascular: denies: chest pain, palpitations Endocrine: no symptoms reported Gastrointestinal: denies: abdominal pain, nausea, diarrhea Genitourinary: denies: urgency, dysuria, discharge Musculoskeletal: denies: back pain, joint swelling, arthralgia Skin: denies: rash, lesions Neurological: denies: headache, weakness, paresthesias Psychiatric: denies: anxiety, depression Hematological/Lymphatic: denies: easy bleeding, easy bruising ED Past Medical Hx - Past Medical History Hx Kidney Stones: Yes Additional medical history: Irritable Bowel syndrome, chronic sinusitis, Anemia - Social History Smoking Status: Never Smoker Substance Use Type: None - Medications Home Medications: Home Medications Medication Instructions Recorded Confirmed Last Taken Type Cyclobenzaprine [Flexeril] 10 mg PO TID PRN #10 tablet 10/28/19 Unknown Rx predniSONE [Deltasone] 20 mg PO DAILY #5 tablet 10/28/19 Unknown Rx HYDROcodone/APAP 5-325 [[place] 1 each PO Q6HR PRN #14 tablet 08/08/20 Unknown Rx 5/325] Peg 400/Hypromellose/Glycerin [Eye 1 - 2 drop OP PRN PRN #1 bottle 08/08/20 Unknown Rx Drop Tears] predniSONE 10 mg PO .TAPER #48 tab 08/08/20 Unknown Rx Butalb/Acetaminophen/Caffeine 1 cap PO Q6HR PRN #20 cap 09/10/20 Unknown Rx [Fioricet 50-300-40 mg CAP] Neomy/Polymyx B/Hc Otic Susp 4 drops TID 10 Days #1 bottle 09/10/20 Unknown Rx [Cortisporin (Otic) Susp] DOXYCYCLINE Hyclate [Vibramycin 100 mg PO Q12HR 10 Days #20 capsule 01/27/22 Unknown Rx CAP] Valacyclovir HCl [Valtrex] 1,000 mg PO TID 7 Days #21 tab 01/27/22 Unknown Rx predniSONE [Deltasone] 50 mg PO QDAY 7 Days #7 tab 01/27/22 Unknown Rx ED Physical Exam - General Limitations: No Limitations General appearance: alert, in no apparent distress - Head Head exam: Present: atraumatic, normocephalic - Eye Eye exam: Present: normal appearance - ENT ENT exam: Present: mucous membranes moist - Expanded ENT Exam Expanded TM/Canal exam: Effusion: Left TM, Mastoid Tenderness: Right TM, Left TM Throat exam: Positive: tonsillar exudate - Neck Neck exam: Present: normal inspection - Respiratory Respiratory exam: Present: normal lung sounds bilaterally. Absent: respiratory distress - Cardiovascular Cardiovascular Exam: Present: regular rate, normal rhythm. Absent: systolic murmur, diastolic murmur, rubs, gallop - GI/Abdominal GI/Abdominal exam: Present: soft, normal bowel sounds - Extremities Exam Extremities exam: Present: normal inspection - Back Exam Back exam: Present: normal inspection - Neurological Exam Neurological exam: Present: alert, oriented X3 - Psychiatric Psychiatric exam: Present: normal affect, normal mood - Skin Skin exam: Present: warm, dry, intact, normal color. Absent: rash ED Course Vital Signs 01/27/22 14:16 Temperature 98.7 F Pulse Rate 107 H Respiratory 18 Rate Blood Pressure 144/104 [Right] O2 Sat by Pulse 99 Oximetry ED Medical Decision Making - Medical Decision Making 46-year-old female presents to the ED complaining headache left earache x 2 weeks and worsen over the last several days . She states that she has a history Alegre palsy and allergies. Patient states she is currently taking Claritin for allergies. Patient states that when her allergies get bad that her Alegre palsy normally flares up. She states that she has body aches, cough ,loss of voice that is worsening in the a.m.. Patient states taking [id number] sinus medication without any relief. Patient is alert and oriented x3. No acute distress noted. No ill appearance noted. Physical examination patient has a symmetrical smile. Tonsillar exudate noted to the left tonsil. Postnasal drip noted. Rechecked the patient is resting quietly quietly and comfortable and feeling better. I discussed the results of diagnostic study, my clinical impression and the plan for further treatment with the patient. Patient agrees with plan and discharge at this present time. All question addressed. I have given the patient instruction regarding a diagnosis ,expectation ,follow- up and return precaution. I explained to the patient that emergent condition may arise and to return to the ED for new worsen and any new persisting condition. I have explained the importance of following up with the primary care physician or referral physician listed below has instructed. The patient verbalized understanding of discharge instruction. Critical care attestation.: If time is entered above; I have spent that time in minutes in the direct care of this critically ill patient, excluding procedure time. ED Disposition Clinical Impression: Alegre's palsy Acute sinusitis Qualifiers: Sinusitis location: frontal Recurrence: recurrent Qualified Code(s): J01.11 - Acute recurrent frontal sinusitis Disposition: 01 HOME / SELF CARE / HOMELESS Is pt being admited?: No Does the pt Need Aspirin: No Condition: Stable Instructions: Alegre Palsy, Adult, Sinusitis, Adult, [id number], Abdominal Pain (ED) Additional Instructions: Take medication as prescribed Return to ED for any worsening symptom Prescriptions: predniSONE [Deltasone] 50 mg PO QDAY 7 Days #7 tab Valacyclovir HCl [Valtrex] 1,000 mg PO TID 7 Days #21 tab DOXYCYCLINE Hyclate [Vibramycin CAP] 100 mg PO Q12HR 10 Days #20 capsule Referrals: LORENE EVERETT MD [Primary Care Provider] - 3-5 Days Forms: Work/School Release Form(ED) Time of Disposition: 17:45
== END 2022-01-27 14:30 | disposition home or self-care (01) ==
LOC: ED 11:58
DX: G51.0 Bell's palsy (principal); J01.90 Acute sinusitis, unspecified; Z88.0 Allergy status to penicillin
CPT/HCPCS: 99282

== ENCOUNTER 2022-03-01 08:37 | Emergency (ER) | payer SELFPAY ==
[2022-03-01 09:24] VITALS: BP 124/76
[2022-03-01] MEDS ORDERED: hydrOXYzine PAMOATE 25 MG CAP PO ONE (13:05)
[2022-03-01 13:39] LABS: HCG Qualitative,Urine Negative (Negative)
[2022-03-01 13:44] LABS: Bacteria,Urine 1+ /HPF (Negative); Bilirubin,Urine NEG (Negative); Blood,Urine LG (Negative); Color,Urine Straw (Yellow); Mucus,Urine FEW /HPF; Protein,Urine <15 mg/dL mg/dL (Negative); Urobilinogen,Urine < 2.0 mg/dL (<2.0)
--- NOTE | 2022-03-01 13:54 | Emergency Department Report ---
ED Female HPI - General Chief complaint: Neuro Symptoms/Deficit Stated complaint: BACK BURNING/KING/BODYACHE Time Seen by Provider: 03/01/22 11:59 Source: patient Mode of arrival: Ambulatory Limitations: Language Barrier - History of Present Illness Initial comments: 46-year-old black female with a past medical history of Alegre's palsy, irritable bowel syndrome, anemia, and chronic sinusitis presents to the emergency department for evaluation of bilateral flank area skin discoloration along with lower back pain. She states that about 3 weeks ago she was treated for an exacerbation of Alegre's palsy with valacyclovir, prednisone, and doxycycline. She states that after starting the doxycycline she started to have itching and irritation to her skin. She continued it for few days and to itching got worse then she decided to stop it. She states that the day she started doxycycline she noticed some discoloration to her right flank area that got progressively worse the next week. She states that the discoloration is now to her bilateral flank area but has not gotten any worse the past few days but it also has not gotten any better. She also states that for the last 3 to 4 days she has had dysuria, frequency, and bilateral lower back pain and burning. She denies fever and abdominal pain. MD Complaint: dysuria -: Gradual, days(s) (3-4) Severity: moderate Severity scale (0 -10): 5 Quality: burning Consistency: intermittent Worsens with: urination Are you Now?: No Associated Symptoms: denies: vaginal discharge, vaginal bleeding, abdominal pain, nausea/vomiting, fever/chills, headaches, loss of appetite, dysuria, hematuria, rash, seizure, shortness of breath, syncope, weakness - Related Data Sexually active: Yes Previous Rx's Medication Instructions Recorded Last Taken Type Cyclobenzaprine [Flexeril] 10 mg PO TID PRN #10 tablet 10/28/19 Unknown Rx predniSONE [Deltasone] 20 mg PO DAILY #5 tablet 10/28/19 Unknown Rx HYDROcodone/APAP 5-325 [[place] 1 each PO Q6HR PRN #14 tablet 08/08/20 Unknown Rx 5/325] Peg 400/Hypromellose/Glycerin [Eye 1 - 2 drop OP PRN PRN #1 bottle 08/08/20 Unknown Rx Drop Tears] predniSONE 10 mg PO .TAPER #48 tab 08/08/20 Unknown Rx Butalb/Acetaminophen/Caffeine 1 cap PO Q6HR PRN #20 cap 09/10/20 Unknown Rx [Fioricet 50-300-40 mg CAP] Neomy/Polymyx B/Hc Otic Susp 4 drops TID 10 Days #1 bottle 09/10/20 Unknown Rx [Cortisporin (Otic) Susp] DOXYCYCLINE Hyclate [Vibramycin 100 mg PO Q12HR 10 Days #20 capsule 01/27/22 Unknown Rx CAP] Valacyclovir HCl [Valtrex] 1,000 mg PO TID 7 Days #21 tab 01/27/22 Unknown Rx predniSONE [Deltasone] 50 mg PO QDAY 7 Days #7 tab 01/27/22 Unknown Rx Naproxen [Naprosyn] 500 mg PO BID #14 tab 03/01/22 Unknown Rx Nitrofurantoin [place]/M-Cryst 100 mg PO Q12HR #14 capsule 03/01/22 Unknown Rx [Macrobid CAP] hydrOXYzine PAMOATE [Vistaril] 25 mg PO Q6HR PRN #30 capsule 03/01/22 Unknown Rx Allergies Allergy/AdvReac Type Severity Reaction Status Date / Time amoxicillin trihydrate Allergy Shortness Verified 03/10/19 09:20 [From Augmentin] of Breath potassium clavulanate Allergy Shortness Verified 03/10/19 09:20 [From Augmentin] of Breath ED Review of Systems ROS: Stated complaint: BACK BURNING/KING/BODYACHE Other details as noted in HPI Comment: All other systems reviewed and negative Constitutional: denies: chills, diaphoresis, fever, weakness Eyes: denies: vision change ENT: denies: congestion Respiratory: denies: cough, orthopnea, shortness of breath, SOB with exertion, SOB at rest, stridor, wheezing Cardiovascular: denies: chest pain, palpitations, dyspnea on exertion, orthopnea, edema, syncope, paroxysmal nocturnal dyspnea Gastrointestinal: denies: abdominal pain, nausea, vomiting, diarrhea, hematemesis, melena, hematochezia Genitourinary: dysuria, frequency. denies: urgency, hematuria, discharge Musculoskeletal: back pain Skin: change in color. denies: rash, lesions Neurological: denies: headache, weakness, numbness, paresthesias, confusion, abnormal gait, vertigo ED Past Medical Hx - Past Medical History Previous Medical History?: Yes Hx Kidney Stones: Yes Additional medical history: Irritable Bowel syndrome, chronic sinusitis, Anemia - Surgical History Past Surgical History?: Yes - Social History Smoking Status: Never Smoker Substance Use Type: None - Medications Home Medications: Home Medications Medication Instructions Recorded Confirmed Last Taken Type Cyclobenzaprine [Flexeril] 10 mg PO TID PRN #10 tablet 10/28/19 Unknown Rx predniSONE [Deltasone] 20 mg PO DAILY #5 tablet 10/28/19 Unknown Rx HYDROcodone/APAP 5-325 [[place] 1 each PO Q6HR PRN #14 tablet 08/08/20 Unknown Rx 5/325] Peg 400/Hypromellose/Glycerin [Eye 1 - 2 drop OP PRN PRN #1 bottle 08/08/20 Unknown Rx Drop Tears] predniSONE 10 mg PO .TAPER #48 tab 08/08/20 Unknown Rx Butalb/Acetaminophen/Caffeine 1 cap PO Q6HR PRN #20 cap 09/10/20 Unknown Rx [Fioricet 50-300-40 mg CAP] Neomy/Polymyx B/Hc Otic Susp 4 drops TID 10 Days #1 bottle 09/10/20 Unknown Rx [Cortisporin (Otic) Susp] DOXYCYCLINE Hyclate [Vibramycin 100 mg PO Q12HR 10 Days #20 capsule 01/27/22 Unknown Rx CAP] Valacyclovir HCl [Valtrex] 1,000 mg PO TID 7 Days #21 tab 01/27/22 Unknown Rx predniSONE [Deltasone] 50 mg PO QDAY 7 Days #7 tab 01/27/22 Unknown Rx Naproxen [Naprosyn] 500 mg PO BID #14 tab 03/01/22 Unknown Rx Nitrofurantoin [place]/M-Cryst 100 mg PO Q12HR #14 capsule 03/01/22 Unknown Rx [Macrobid CAP] hydrOXYzine PAMOATE [Vistaril] 25 mg PO Q6HR PRN #30 capsule 03/01/22 Unknown Rx ED Physical Exam - General Limitations: Language Barrier General appearance: alert, in no apparent distress - Head Head exam: Present: atraumatic, normocephalic - Eye Eye exam: Present: normal appearance. Absent: conjunctival injection - Neck Neck exam: Present: normal inspection. Absent: tenderness, lymphadenopathy - Respiratory Respiratory exam: Present: normal lung sounds bilaterally. Absent: respiratory distress, wheezes, rales, rhonchi, stridor, chest wall tenderness - Cardiovascular Cardiovascular Exam: Present: regular rate, tachycardia, normal heart sounds - GI/Abdominal GI/Abdominal exam: Present: soft, normal bowel sounds. Absent: distended, tenderness, guarding, rebound, rigid - Extremities Exam Extremities exam: Present: normal inspection, normal capillary refill. Absent: pedal edema, joint swelling, calf tenderness - Back Exam Back exam: Present: normal inspection. Absent: CVA tenderness (R), CVA tenderness (L), vertebral tenderness - Neurological Exam Neurological exam: Present: alert, oriented X3, normal gait - Expanded Neurological Exam Expanded Patient oriented to: Present: person, place, time Speech: Present: fluid speech Cranial nerves: EOM's Intact: Normal, Gag Reflex: Normal, Tongue Deviation: Normal, Nystagmus: Normal, Facial Sensation: Normal Ataxia: Absent: yes Cerebellar function: Romberg: Normal Sensory exam: Upper Extremity Light Touch: Normal, Upper Extremity Temperature: Normal, Lower Extremity Light Touch: Normal, Lower Extremity Temperature: Normal Motor strength exam: RUE: 5, LUE: 5, RLE: 5, LLE: 5 Best Eye Response (Seth): (4) open spontaneously Best Motor Response (Seth): (6) obeys commands Best Verbal Response (Seth): (5) oriented Sima Total: 15 - Psychiatric Psychiatric exam: Present: normal affect, normal mood - Skin Skin exam: Present: warm, dry, intact, other (Noted to have discoloration to bilateral flank area. No erythema noted. Not tender to touch.) ED Course Vital Signs 03/01/22 09:18 Temperature 97.9 F Pulse Rate 120 H Respiratory 16 Rate Blood Pressure 124/76 [Left] O2 Sat by Pulse 96 Oximetry ED Medical Decision Making - Medical Decision Making 46-year-old black female with a past medical history of Alegre's palsy, irritable bowel syndrome, anemia, and chronic sinusitis presents to the emergency department for evaluation of bilateral flank area skin discoloration along with lower back pain. She states that about 3 weeks ago she was treated for an exacerbation of Alegre's palsy with valacyclovir, prednisone, and doxycycline. She states that after starting the doxycycline she started to have itching and irritation to her skin. She continued it for few days and to itching got worse then she decided to stop it. She states that the day she started doxycycline she noticed some discoloration to her right flank area that got progressively worse the next week. She states that the discoloration is now to her bilateral flank area but has not gotten any worse the past few days but it also has not gotten any better. She also states that for the last 3 to 4 days she has had dysuria, frequency, and bilateral lower back pain and burning. She denies fever and abdominal pain. Bilateral flank skin discoloration and itching likely related to taking doxycycline. Urine positive for urinary tract infection. Patient will be treated with 7-day course of Keflex. She is advised to take medications as prescribed, increase p.o. fluid intake, and follow-up with primary care provider if no improvement or worsening symptoms. She is advised to follow-up in the emergency department for any concerning symptoms. She verbalizes understanding of and agreement with plan of care. Critical care attestation.: If time is entered above; I have spent that time in minutes in the direct care of this critically ill patient, excluding procedure time. ED Disposition Clinical Impression: Discoloration of skin UTI (urinary tract infection) Qualifiers: Urinary tract infection type: acute cystitis Hematuria presence: with hematuria Qualified Code(s): N30.01 - Acute cystitis with hematuria Disposition: HOME / SELF CARE / HOMELESS Is pt being admited?: No Does the pt Need Aspirin: No Condition: Stable Instructions: Antibiotic Medicine, Adult, [id number], Urinary Tract Infection, Adult, [id number] Additional Instructions: Take medications as prescribed. Follow-up with primary care provider if no improvement or worsening symptoms. Return to the emergency department as needed. Prescriptions: Nitrofurantoin [place]/M-Cryst [Macrobid CAP] 100 mg PO Q12HR #14 capsule Naproxen [Naprosyn] 500 mg PO BID #14 tab hydrOXYzine PAMOATE [Vistaril] 25 mg PO Q6HR PRN #30 capsule PRN Reason: Itching Referrals: CARMENCITA SKELTON MD [Referring] - 3-5 Days Forms: Work/School Release Form(ED) Time of Disposition: 13:54
[2022-03-01] MEDS ORDERED: KETOROLAC 10 MG TAB PO ONE (13:59)
--- NOTE | 2022-03-02 10:03 | Electrocardiograph Report ---
[facility] Test Date: 2022-03-01 Test Time: 09:23:33 Pat Name: GAYLE WHITNEY Department: Room: Gender: F [employer] Farm[employer]: MIR : 1975 Requested By: ED DOC Order Number: [id number] Reading MD: Valdez Gann Measurements Intervals [place] Rate: 99 P: 58 MS: 166 QRS: 29 QRSD: 77 T: 22 QT: 361 QTc: 465 Interpretive Statements Sinus rhythm Left atrial enlargement No previous ECG available for comparison Electronically Signed On 03-02-2022 10:03:27 EDT by Valdez Gann
== END 2022-03-01 14:54 | disposition home or self-care (01) ==
LOC: ED 08:37
DX: N39.0 Urinary tract infection, site not specified (principal); L81.9 Disorder of pigmentation, unspecified; N20.0 Calculus of kidney; Z91.09 Other allergy status, other than to drugs and biological substances; Z79.899 Other long term (current) drug therapy
CPT/HCPCS: 81001; 81025; 93005; 99283

== ENCOUNTER 2022-04-02 08:22 | Emergency (ER) | payer SELFPAY ==
[2022-04-02 08:31] VITALS: BP 167/111
[2022-04-02] MEDS ORDERED: dexAMETHasone 4 MG/ML VIAL IV ONE (09:39)
[2022-04-02] MEDS ORDERED: BUTALB/ACETAMINOPHEN/CAFFEINE TAB PO ONE (09:39)
--- NOTE | 2022-04-02 10:28 | Emergency Department Report ---
ED Headache HPI - General Chief Complaint: Headache Stated Complaint: RT HEAD RICHARDSON RT SIDE NUMBNESS Time Seen by Provider: 04/02/22 09:21 - History of Present Illness Allergies/Adverse Reactions: Allergies amoxicillin trihydrate [From Augmentin] Allergy (Verified 03/10/19 09:20) Shortness of Breath potassium clavulanate [From Augmentin] Allergy (Verified 03/10/19 09:20) Shortness of Breath Home Medications: Ambulatory Orders Butalb/Acetaminophen/Caffeine [Fioricet 50-300-40 mg CAP] 1 cap PO Q6HR PRN #20 cap 04/02/22 Valacyclovir HCl [Valtrex] 1,000 mg PO TID 7 Days #21 tab 04/02/22 predniSONE [Deltasone] 20 mg PO DAILY #5 tablet 04/02/22 ED Review of Systems ROS: Stated complaint: RT HEAD R[place] RT SIDE NUMBNESS Other details as noted in HPI Comment: All other systems reviewed and negative ED Past Medical Hx - Past Medical History Previous Medical History?: Yes Hx Kidney Stones: Yes Additional medical history: Irritable Bowel syndrome, chronic sinusitis, Anemia, [place] Palsy, COVID - Surgical History Past Surgical History?: Yes - Family History Family history: no significant - Social History Smoking Status: Never Smoker - Medications Home Medications: Home Medications Medication Instructions Recorded Confirmed Last Taken Type Butalb/Acetaminophen/Caffeine 1 cap PO Q6HR PRN #20 cap 04/02/22 Unknown Rx [Fioricet 50-300-40 mg CAP] Valacyclovir HCl [Valtrex] 1,000 mg PO TID 7 Days #21 tab 04/02/22 Unknown Rx predniSONE [Deltasone] 20 mg PO DAILY #5 tablet 04/02/22 Unknown Rx ED Physical Exam - General Limitations: No Limitations General appearance: alert, in no apparent distress - Head Head exam: Present: atraumatic, normocephalic - Eye Eye exam: Present: normal appearance - ENT ENT exam: Present: mucous membranes moist - Neck Neck exam: Present: normal inspection - Respiratory Respiratory exam: Present: normal lung sounds bilaterally. Absent: respiratory distress - Cardiovascular Cardiovascular Exam: Present: regular rate, normal rhythm. Absent: systolic murmur, diastolic murmur, rubs, gallop - GI/Abdominal GI/Abdominal exam: Present: soft, normal bowel sounds - Extremities Exam Extremities exam: Present: normal inspection - Back Exam Back exam: Present: normal inspection - Neurological Exam Neurological exam: Present: alert, oriented X3 - Expanded Neurological Exam Expanded Neurological exam: Present: innattentive, protecting the airway Patient oriented to: Present: person, place, time Speech: Present: fluid speech Cranial nerves: EOM's Intact: Normal, Gag Reflex: Normal, Tongue Deviation: Normal, Nystagmus: Normal, Facial Palsy without Forehead Movement: Abnormal Left - Psychiatric Psychiatric exam: Present: normal affect, normal mood - Skin Skin exam: Present: warm, dry, intact, normal color. Absent: rash ED Course Vital Signs 04/02/22 08:27 Temperature 98.9 F Pulse Rate 110 H Respiratory 16 Rate Blood Pressure 167/111 O2 Sat by Pulse 100 Oximetry ED Medical Decision Making - Radiology Data Radiology results: report reviewed, image reviewed Critical care attestation.: If time is entered above; I have spent that time in minutes in the direct care of this critically ill patient, excluding procedure time. ED Disposition Clinical Impression: Alegre's palsy, Migraine Disposition: 01 HOME / SELF CARE / HOMELESS Is pt being admited?: No Does the pt Need Aspirin: No Condition: Stable Instructions: Alegre Palsy, Adult Referrals: PRIMARY CARE, [Primary Care Provider] - 3-5 Days LORENE EVERETT MD [Staff Physician] - 3-5 Days VALENTINO TRONCOSO MD [Staff Physician] - 3-5 Days Forms: Work/School Release Form(ED) Time of Disposition: 12:17
--- NOTE | 2022-04-02 12:15 | Cat Scan Report ---
CT HEAD WITHOUT CONTRAST INDICATION / CLINICAL INFORMATION: SEVERE HEAD PAIN. TECHNIQUE: All CT scans at this location are performed using CT dose reduction for ALARA by means of automated exposure control. COMPARISON: None available. FINDINGS: BRAIN PARENCHYMA: No acute intracranial hemorrhage. No evidence of recent infarct. No mass effect or midline shift. VENTRICULAR SYSTEM/EXTRA-AXIAL SPACES: Ventricles are normal for age. No extra-axial fluid collection . ORBITS: Normal as visualized. SKELETAL SYSTEM/SOFT TISSUES: Calvarium and extra calvarial soft tissues demonstrate no acute normali ty. There is focal fatty prominence of the right frontal scalp, may reflect small lipoma. PARANASAL SINUSES/MASTOID AIR CELLS: No significant abnormality. ADDITIONAL FINDINGS: None. IMPRESSION: 1. No acute intracranial abnormality. Signer Name: Dajuan Dyer MD Signed: 04/02/2022 12:07 PM Workstation Name: [id number]
[2022-04-02] MEDS ORDERED: IBUPROFEN 800 MG TAB PO ONE (12:16)
--- NOTE | 2022-04-05 18:42 | Electrocardiograph Report ---
[facility] Test Date: 2022-04-02 Test Time: 08:33:44 Pat Name: GAYLE WHITNEY Department: Room: Gender: F Book Sewer: CORIE : 1975 Requested By: MANOHAR LEON Order Number: [id number] Reading MD: Sim Saeed Measurements Intervals [place] Rate: 102 P: 51 UT: 176 QRS: 36 QRSD: 77 T: 28 QT: 348 QTc: 454 Interpretive Statements Sinus tachycardia Probable left atrial enlargement Compared to ECG 03/01/2022 09:23:33 No significant change Electronically Signed On 04-05-2022 18:41:43 EDT by Sim Saeed
== END 2022-04-02 12:40 | disposition home or self-care (01) ==
LOC: ED 08:22
DX: G43.909 Migraine, unspecified, not intractable, without status migrainosus (principal); G51.0 Bell's palsy; Z87.442 Personal history of urinary calculi; K58.9 Irritable bowel syndrome, unspecified; D64.9 Anemia, unspecified; J32.9 Chronic sinusitis, unspecified; Z98.890 Other specified postprocedural states; Z88.1 Allergy status to other antibiotic agents
CPT/HCPCS: 70450; 93005; 96374; 99283; J1100

== ENCOUNTER 2022-04-24 13:27 | Emergency (ER) | payer SELFPAY ==
[2022-04-24 13:38] VITALS: BP 125/75
[2022-04-24 15:14] LABS: Basophils # (Auto) 0.2 K/mm3 (0.0-0.1); Eosinophils # (Auto) 0.1 K/mm3 (0.0-0.4); Eosinophils % (Auto) 0.5 % (0.0-4.3); Hematocrit 23.3 % (30.3-42.9); Lymphocytes # (Auto) 0.8 K/mm3 (1.2-5.4); Lymphocytes % (Auto) 5.3 % (13.4-35.0); Mean Corpuscular HGB Conc 30 % (30-34); Mean Corpuscular Volume 63 fl (79-97); Monocytes % (Auto) 6.7 % (0.0-7.3); Platelet Count 432 K/mm3 (140-440); Red Blood Count 3.69 M/mm3 (3.65-5.03)
[2022-04-24 15:15] LABS: Red Cell Distribution Width 20.2 % (13.2-15.2)
--- NOTE | 2022-04-24 15:15 | Ultrasound Report ---
ULTRASOUND PELVIS INDICATION / CLINICAL INFORMATION: Abnormal VAGINAL BLEEDING. TECHNIQUE: Transvaginal. Duplex Color Doppler used: Yes. COMPARISON: None available FINDINGS: UTERUS: The uterus measures 10.1 x 6.5 x 9.3 cm. Multiple uterine fibroids, largest measuring 4.5 cm at the anterior fundus. The endometrial stripe measures 1.1 cm. RIGHT ADNEXA: 2.6 cm simple cyst and several small follicles. Normal color Doppler blood flow. LEFT ADNEXA: Small ovarian follicles. No suspicious mass. Normal color Doppler blood flow. URINARY BLADDER: No significant abnormality. FREE FLUID: None. ADDITIONAL FINDINGS: None. IMPRESSION: 1. Enlarged uterus with multiple fibroids. Endometrial stripe measures 1.1 cm, which is within thee l limits in a premenopausal patient. 2. 2.6 cm simple right ovarian cyst. No routine follow-up is required. Signer Name: Dajuan Dyer MD Signed: 04/24/2022 3:11 PM Workstation Name: [id number]
[2022-04-24 15:32] LABS: Alanine Aminotransferase 9 units/L (7-56); Albumin 4.3 g/dL (3.9-5); BUN/Creatinine Ratio 6; Blood Urea Nitrogen 6 mg/dL (7-17); Calcium 9.9 mg/dL (8.4-10.2); Hemolysis Index 5
== END 2022-04-25 01:56 | disposition left against medical advice (07) ==
LOC: ED 13:27
DX: R51.9 Headache, unspecified (principal); R68.83 Chills (without fever); Z53.21 Procedure and treatment not carried out due to patient leaving prior to being seen by health care provider
CPT/HCPCS: 36415; 76830; 80053; 84703; 85025

== ENCOUNTER 2022-04-25 10:05 | Inpatient (IN) | payer OTHER ==
[2022-04-25] MEDS ORDERED: ACETAMINOPHEN 325 MG TAB PO ONE ×2 (12:24→22:11)
--- NOTE | 2022-04-25 12:31 | Emergency Department Report ---
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 According to patient she was here last night and it did ultrasound but patient left before the ultrasound report and also blood test report came back. Patient decided to come back today for further check and also follow-up on the results of the ultrasound and also blood test. At the time my evaluation patient endorsed suprapubic discomfort. Patient denies Dizziness blurred vision lightheadedness headache tinnitus ear pain runny nose sore throat loss of taste loss of smell chest pain palpitation short of breath cough nausea vomiting diarrhea constipation dysuria myalgia arthralgia new rash and heat or cold intolerance. Severity scale (0 -10): 9 - Related Data Previous Rx's Medication Instructions Recorded Last Taken Type Butalb/Acetaminophen/Caffeine 1 cap PO Q6HR PRN #20 cap 04/02/22 Unknown Rx [Fioricet 50-300-40 mg CAP] Valacyclovir HCl [Valtrex] 1,000 mg PO TID 7 Days #21 tab 04/02/22 Unknown Rx predniSONE [Deltasone] 20 mg PO DAILY #5 tablet 04/02/22 Unknown Rx Ciprofloxacin [Ciprofloxacin ORAL 500 mg PO Q12H 7 Days #14 ml 04/25/22 Unknown Rx LIQ] Methylergonovine [Methergine] 0.2 mg PO Q8HR 7 Days #21 tablet 04/25/22 Unknown Rx Allergies Allergy/AdvReac Type Severity Reaction Status Date / Time amoxicillin trihydrate Allergy Shortness Verified 04/24/22 13:39 [From Augmentin] of Breath potassium clavulanate Allergy Shortness Verified 04/24/22 13:39 [From Augmentin] of Breath ED Review of Systems ROS: Stated complaint: ABD PAIN/HEADACHE/CHILLS/BLOODCLOTS Other details as noted in HPI Comment: All other systems reviewed and negative Constitutional: see HPI, chills, fever Eyes: as per HPI ENT: as per HPI Respiratory: no symptoms reported, see HPI Cardiovascular: as per HPI Endocrine: no symptoms reported, see HPI Gastrointestinal: as per HPI, abdominal pain. denies: nausea, vomiting, consti pation, hematemesis, melena, hematochezia Genitourinary: discharge Musculoskeletal: as per HPI Skin: as per HPI Neurological: as per HPI Psychiatric: as per HPI Hematological/Lymphatic: as per HPI ED Past Medical Hx - Past Medical History Previous Medical History?: Yes Hx Kidney Stones: Yes Additional medical history: Irritable Bowel syndrome, chronic sinusitis, Anemia, [place] Palsy, COVID - Surgical History Past Surgical History?: No - Social History Smoking Status: Never Smoker Substance Use Type: None - Medications Home Medications: Home Medications Medication Instructions Recorded Confirmed Last Taken Type Butalb/Acetaminophen/Caffeine 1 cap PO Q6HR PRN #20 cap 04/02/22 Unknown Rx [Fioricet 50-300-40 mg CAP] Valacyclovir HCl [Valtrex] 1,000 mg PO TID 7 Days #21 tab 04/02/22 Unknown Rx predniSONE [Deltasone] 20 mg PO DAILY #5 tablet 04/02/22 Unknown Rx Ciprofloxacin [Ciprofloxacin ORAL 500 mg PO Q12H 7 Days #14 ml 04/25/22 Unknown Rx LIQ] Methylergonovine [Methergine] 0.2 mg PO Q8HR 7 Days #21 tablet 04/25/22 Unknown Rx ED Physical Exam - General Limitations: No Limitations General appearance: alert, in no apparent distress - Head Head exam: Present: atraumatic, normocephalic, normal inspection - Eye Eye exam: Present: normal appearance, PERRL, EOMI Pupils: Present: normal accommodation - ENT ENT exam: Present: normal exam, mucous membranes moist - Neck Neck exam: Present: normal inspection, full ROM - Respiratory Respiratory exam: Present: normal lung sounds bilaterally - Cardiovascular Cardiovascular Exam: Present: tachycardia, normal heart sounds - GI/Abdominal GI/Abdominal exam: Present: soft, tenderness (SUPRAPUBIC). Absent: guarding, rebound, rigid - Extremities Exam Extremities exam: Present: normal inspection, normal capillary refill - Back Exam Back exam: Present: normal inspection, full ROM - Neurological Exam Neurological exam: Present: alert, altered, oriented X3, CN II-XII intact, normal gait - Psychiatric Psychiatric exam: Present: normal affect, normal mood - Skin Skin exam: Present: normal color ED Course Vital Signs 04/25/22 04/25/22 04/25/22 10:16 10:46 10:51 Temperature 102.1 F H 100.3 F H Pulse Rate 139 H 122 H 123 H Respiratory 20 20 16 Rate Blood Pressure 106/85 Blood Pressure 124/70 [Left] O2 Sat by Pulse 100 99 99 Oximetry 04/25/22 04/25/22 04/25/22 10:53 11:00 11:16 Temperature Pulse Rate 116 H 118 H Respiratory 26 H 22 Rate Blood Pressure 106/85 111/76 Blood Pressure [Left] O2 Sat by Pulse 100 99 97 Oximetry 04/25/22 04/25/22 04/25/22 11:30 11:46 12:00 Temperature Pulse Rate 117 H 115 H 115 H Respiratory 25 H 16 23 Rate Blood Pressure 111/76 120/69 119/85 Blood Pressure [Left] O2 Sat by Pulse 100 96 99 Oximetry 04/25/22 04/25/22 04/25/22 12:16 12:30 12:46 Temperature Pulse Rate 120 H 118 H 121 H Respiratory 24 35 H 26 H Rate Blood Pressure 107/86 107/86 127/77 Blood Pressure [Left] O2 Sat by Pulse 98 100 99 Oximetry 04/25/22 04/25/22 04/25/22 13:00 13:26 13:31 Temperature Pulse Rate 122 H Respiratory 22 15 Rate Blood Pressure 127/77 139/83 139/83 Blood Pressure [Left] O2 Sat by Pulse 99 Oximetry 04/25/22 04/25/22 04/25/22 13:46 14:00 14:16 Temperature Pulse Rate 123 H 125 H 117 H Respiratory 30 H 30 H 24 Rate Blood Pressure 111/65 111/65 112/66 Blood Pressure [Left] O2 Sat by Pulse 98 98 100 Oximetry 04/25/22 04/25/22 04/25/22 14:30 14:46 15:00 Temperature Pulse Rate 116 H 116 H 115 H Respiratory 25 H 26 H 24 Rate Blood Pressure 112/66 108/59 108/59 Blood Pressure [Left] O2 Sat by Pulse 100 99 97 Oximetry 04/25/22 04/25/22 04/25/22 15:16 15:30 15:46 Temperature Pulse Rate 114 H 110 H 118 H Respiratory 20 23 18 Rate Blood Pressure 109/64 109/64 109/62 Blood Pressure [Left] O2 Sat by Pulse 99 99 100 Oximetry 04/25/22 04/25/22 04/25/22 16:00 16:16 16:30 Temperature Pulse Rate 111 H 115 H 113 H Respiratory 19 21 30 H Rate Blood Pressure 117/76 112/65 98/38 Blood Pressure [Left] O2 Sat by Pulse 100 98 98 Oximetry 04/25/22 04/25/22 04/25/22 16:46 17:00 17:16 Temperature Pulse Rate 113 H 114 H 113 H Respiratory 26 H 28 H 24 Rate Blood Pressure 134/76 134/76 132/81 Blood Pressure [Left] O2 Sat by Pulse 100 99 98 Oximetry 04/25/22 04/25/22 04/25/22 17:30 17:45 18:14 Temperature Pulse Rate 121 H 118 H Respiratory 22 29 H Rate Blood Pressure 132/81 132/81 151/76 Blood Pressure [Left] O2 Sat by Pulse 98 100 99 Oximetry 04/25/22 04/25/22 04/25/22 18:16 18:30 18:46 Temperature Pulse Rate 129 H 126 H 127 H Respiratory 23 30 H 29 H Rate Blood Pressure 135/79 135/73 151/76 Blood Pressure [Left] O2 Sat by Pulse 100 100 99 Oximetry 04/25/22 04/25/22 04/25/22 19:00 19:16 19:30 Temperature Pulse Rate 133 H 136 H 131 H Respiratory 15 22 33 H Rate Blood Pressure 156/79 135/74 135/74 Blood Pressure [Left] O2 Sat by Pulse 100 100 98 Oximetry 04/25/22 04/25/22 04/25/22 19:46 19:53 20:00 Temperature 97.7 F Pulse Rate 130 H 130 H 130 H Respiratory 33 H 33 H 37 H Rate Blood Pressure 132/82 140/77 Blood Pressure 132/82 [Left] O2 Sat by Pulse 99 99 97 Oximetry 04/25/22 04/25/22 04/25/22 20:16 20:30 20:46 Temperature Pulse Rate 130 H 131 H 133 H Respiratory 34 H 25 H 37 H Rate Blood Pressure 127/84 127/84 132/72 Blood Pressure [Left] O2 Sat by Pulse 99 98 99 Oximetry 04/25/22 04/25/22 04/25/22 21:00 21:16 21:30 Temperature Pulse Rate 139 H 133 H 142 H Respiratory 22 33 H 28 H Rate Blood Pressure 132/72 131/68 131/68 Blood Pressure [Left] O2 Sat by Pulse 81 L 96 99 Oximetry 04/25/22 04/25/22 04/25/22 21:35 21:50 21:56 Temperature 103.1 F H 103.1 F H Pulse Rate 140 H 139 H 140 H Respiratory 29 H 35 H 36 H Rate Blood Pressure 122/63 130/59 109/62 Blood Pressure [Left] O2 Sat by Pulse 98 97 96 Oximetry 04/25/22 04/25/22 22:00 22:10 Temperature Pulse Rate 136 H 133 H Respiratory 24 37 H Rate Blood Pressure 109/62 122/61 Blood Pressure [Left] O2 Sat by Pulse 97 97 Oximetry - Reevaluation(s) Reevaluation #1: 04/25/22 22:08 GI BLEED NEGATIVE AND HEMOGLOBIN AT 6.5 GETTING 1U OF BLOOD. ELEVATED WBC IN 20S AND TACHY NOT RESPONDING TO FLUID HYDRATION WITH CT SCAN FINDING CONCERN FOR LIKELY TUBULOVARIAN ABSCESS. PATIENT ALSO HAVE UTI. ; SPOKE TO DR. BHAKTA WHO KINDLY ACCEPTED THE PATIENT. 04/25/22 22:22 ED Medical Decision Making - Lab Data Result diagrams: 04/25/22 16:00 04/25/22 16:00 Critical care attestation.: If time is entered above; I have spent that time in minutes in the direct care of this critically ill patient, excluding procedure time. ED Disposition Clinical Impression: Anemia, UTI (urinary tract infection), Tubo-ovarian abscess Disposition: ADMITTED INPATIENT Is pt being admited?: No Does the pt Need Aspirin: No Condition: Stable Prescriptions: Ciprofloxacin [Ciprofloxacin ORAL LIQ] 500 mg PO Q12H 7 Days #14 ml Methylergonovine [Methergine] 0.2 mg PO Q8HR 7 Days #21 tablet Referrals: PRIMARY CARE, [Primary Care Provider] - 3-5 Days Time of Disposition: 22:11
[2022-04-25] MEDS ORDERED: SODIUM CHLORIDE 0.9% 1000 ML 1,000 ML IV ONE ×3 (12:32→18:27)
[2022-04-25 13:31] LABS: Bilirubin,Urine NEG (Negative); Blood,Urine MOD (Negative); Color,Urine Yellow (Yellow); Urobilinogen,Urine < 2.0 mg/dL (<2.0)
[2022-04-25 13:38] LABS: Bacteria,Urine 1+ /HPF (Negative); Hyaline Casts,Urine 1 /LPF; Mucus,Urine 1+ /HPF
[2022-04-25 17:06] LABS: Mean Corpuscular HGB Conc 29 % (30-34); Platelet Count 357 K/mm3 (140-440); Red Blood Count 3.53 M/mm3 (3.65-5.03); Red Cell Distribution Width 19.8 % (13.2-15.2)
[2022-04-25 17:10] LABS: Albumin 3.7 g/dL (3.9-5)
[2022-04-25 17:11] LABS: Hematocrit 22.6 % (30.3-42.9); Hemoglobin 6.5 gm/dl (10.1-14.3); Mean Corpuscular Volume 64 fl (79-97)
--- NOTE | 2022-04-25 17:34 | XRay Report ---
CHEST 1 VIEW 04/25/2022 4:21 PM INDICATION / CLINICAL INFORMATION: fever. COMPARISON: 10/28/2019 FINDINGS: SUPPORT DEVICES: None. HEART / MEDIASTINUM: No significant abnormality. LUNGS / PLEURA: No significant pulmonary or pleural abnormality. No pneumothorax. ADDITIONAL FINDINGS: No significant additional findings. IMPRESSION: 1. No acute findings. Signer Name: Joce Yusuf MD Signed: 04/25/2022 5:28 PM Workstation Name: [id number]
[2022-04-25] MEDS ORDERED: MORPHINE 2 MG/1 ML INJ IV ONE (17:38)
[2022-04-25] MEDS ORDERED: SODIUM CHLORIDE 0.9% 500 ML 500 ML IV ONE (18:25)
[2022-04-25] MEDS ORDERED: cefTRIAXone/NS 2 GM/100 ML 2 GM/100 ML BAG IV ONE (18:26)
--- NOTE | 2022-04-25 18:33 | Cat Scan Report ---
CT ABDOMEN AND PELVIS WITH CONTRAST INDICATION / CLINICAL INFORMATION: suprapubic discomfort/fever. TECHNIQUE: Axial CT images were obtained through the abdomen and pelvis after 100 cc Omnipaque [address] scans at this location are performed using CT dose reduction for ALARA by means of automated exposure control. COMPARISON: Pelvic ultrasound dated April 24, 2022 FINDINGS: LOWER CHEST: No significant abnormality. AORTA / ARTERIES: No significant abnormality. IVC / VEINS: No significant abnormality. LYMPH NODES: No significant adenopathy. COLON: No significant abnormality. APPENDIX: The appendix measures normal caliber but terminates in the region of a tubular fluid attenu ating lesion. STOMACH / SMALL BOWEL: No significant abnormality. PERITONEUM: No free fluid. No free air. No fluid collection. LIVER: No significant abnormality. GALLBLADDER: No significant abnormality. BILE DUCTS: No significant abnormality. PANCREAS: No significant abnormality. SPLEEN: No significant abnormality. ADRENALS: No significant abnormality. RIGHT KIDNEY / URETER: No significant abnormality. LEFT KIDNEY / URETER: No significant abnormality. URINARY BLADDER: No significant abnormality. REPRODUCTIVE ORGANS: There is a fibroid uterus. Along the right adnexa there is a tubular fluid atten uating lesion which appears to be located between the right ovary and uterus. This tubular structure measures roughly 2.1 x 5.3 x 6.7 cm. Adjacent to this structure there is fat stranding. SKELETAL SYSTEM: No significant abnormality. ADDITIONAL FINDINGS: None. IMPRESSION: 1. Within the right adnexa there is a tubular fluid attenuating lesion which appears to be between th e right ovary and uterus. There is also a normal caliber appendix which appears to terminate in the r egion of this tubular fluid attenuating lesion. This is nonspecific and may represent tubo-ovarian ab scess versus hydrosalpinx versus appendix mucocele. Signer Name: Ernie Cervantes DO Signed: 04/25/2022 6:28 PM Workstation Name: [employer]
[2022-04-25 19:33] LABS: Basophils % (Manual) 0 % (0.0-1.8); Eosinophils % (Manual) 0 % (0.0-4.3); Total Cells Counted 100
[2022-04-25 19:34] LABS: Anisocytosis 1+; Hypochromasia 3+; Ovalocytes Few; Platelet Estimate Consistent w Auto; Poikilocytosis 1+
[2022-04-25] MEDS ORDERED: oxyCODONE /ACETAMINOPHEN 5-325MG TAB PO ONE (20:38)
[2022-04-25] MEDS ORDERED: SODIUM CHLORIDE 0.9% 500 ML 500 ML ONE (21:22)
[2022-04-25 22:47] LABS: Hematocrit 25.9 % (30.3-42.9); Hemoglobin 7.7 gm/dl (10.1-14.3)
[2022-04-26] MEDS ORDERED: HYDROcodone/ACETAMINOPHEN 5-325 MG TAB PO PRN (01:20)
[2022-04-26] MEDS ORDERED: MORPHINE 4 MG/1 ML INJ IV PRN (01:20)
--- NOTE | 2022-04-26 01:33 | History and Physical Report ---
History of Present Illness Date of examination: 04/25/22 Date of admission: 04/26/2022 Chief complaint: Pelvic pain and heavy vaginal bleeding. History of present illness: The patient is a 46-year-old female who reports intermittent right-sided pelvic pain with heavy vaginal bleeding. She sought care in the emergency department. CT scan was performed. Appendicit is was ruled out. However, the patient had an elevated white blood cell count, fever, and suspected tubo-ovarian abscess vs. hydrosalpinx suspected on CT scan. In addition, the patient had severe anemia with a hemoglobin less than 8 g. Blood transfusion was ordered. The etiology for the severe anemia is likely secondary to the heavy vaginal bleeding. The heavy vaginal bleeding is likely secondary to symptomatic uterine fibroids. The patient is admitted to the general medical floor for evaluation and management of tubo-ovarian abscess vs. hydrosalpinx, menometrorrhagia, and severe anemia. IV antibiotics and blood transfusion are to be administered. 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 Family/Genetic History: cancer, other (Asthma) Social history: no significant social history Medications and Allergies Allergies Allergy/AdvReac Type Severity Reaction Status Date / Time amoxicillin trihydrate Allergy Shortness Verified 04/24/22 13:39 [From Augmentin] of Breath potassium clavulanate Allergy Shortness Verified 04/24/22 13:39 [From Augmentin] of Breath Home Medications Medication Instructions Recorded Confirmed Last Taken Type predniSONE [Deltasone] 20 mg PO DAILY #5 tablet 04/02/22 04/26/22 Unknown Rx Ciprofloxacin [Ciprofloxacin ORAL 500 mg PO Q12H 7 Days #14 ml 04/25/22 Unknown Rx LIQ] Methylergonovine [Methergine] 0.2 mg PO Q8HR 7 Days #21 tablet 04/25/22 Unknown Rx Active Meds: Active Medications Acetaminophen (Acetaminophen 325 Mg Tab) 650 mg PO Q4H PRN PRN Reason: Headache Hydrocodone Bitart/Acetaminophen (Hydrocodone/Acetaminophen 5-325 Mg Tab) 2 each PO Q6H PRN PRN Reason: Pain, Moderate (4-6) Sodium Chloride (Nacl 0.9% 1000 Ml) 1,000 mls @ 100 mls/hr IV DIRECT FROILAN Ibuprofen (Ibuprofen 800 Mg Tab) 800 mg PO Q8H PRN PRN Reason: Pain, Mild (1-3) Morphine Sulfate (Morphine 4 Mg/1 Ml Inj) 4 mg IV Q4H PRN PRN Reason: Pain , Severe (7-10) Sodium Chloride (Sodium Chloride 0.9% 10 Ml Flush Syringe) 10 ml IJ PRN PRN PRN Reason: LINE FLUSH Review of Systems All systems: negative Constitutional: fatigue, malaise, lethargy - Vital Signs Vital signs: Vital Signs Temp Pulse Resp BP Pulse Ox 102.1 F H 139 H 20 124/70 100 04/25/22 10:16 04/25/22 10:16 04/25/22 10:16 04/25/22 10:16 04/25/22 10:16 Temp Pulse Resp BP Pulse Ox 103.1 F H 133 H 37 H 122/61 97 04/25/22 21:56 04/25/22 22:10 04/25/22 22:10 04/25/22 22:10 04/25/22 22:10 - Physical Exam Breasts: Positive: normal Cardiovascular: Regular rate Lungs: Positive: Normal air movement Abdomen: Positive: normal appearance, soft, other (Right-sided pelvic pain to deep palpation.) Genitourinary (Female): Positive: normal external genitalia, normal perenium Vulva: both: normal Uterus: Positive: enlarged Adnexa: both: normal Anus/Rectum: Positive: normal perianal skin Extremities: Positive: normal Deep Tendon Reflex Grade: Normal +2 Results Result Diagrams: 04/25/22 22:40 04/25/22 16:00 Abnormal lab results 04/25/22 04/25/22 04/25/22 Range/Units 12:40 13:22 16:00 WBC 20.5 H (4.5-11.0) K/mm3 RBC 3.53 L (3.65-5.03) M/mm3 Hgb 6.5 L (10.1-14.3) gm/dl Hct 22.6 L (30.3-42.9) % MCV 64 L (79-97) fl MCH 18 L (28-32) pg MCHC 29 L (30-34) % RDW 19.8 H (13.2-15.2) % Seg Neuts % (Manual) 84.0 H (40.0-70.0) % Seg Neutrophils # Man 17.2 H (1.8-7.7) K/mm3 Carbon Dioxide (22-30) mmol/L Creatinine (0.6-1.2) mg/dL Lactic Acid 2.80 H* (0.7-2.0) mmol/L Albumin (3.9-5) g/dL Urine WBC (Auto) 76.0 H (0.0-6.0) /HPF U Epithel Cells (Auto) 34.0 H (0-13.0) /HPF Crossmatch 04/25/22 04/25/22 04/25/22 Range/Units 16:00 20:30 22:40 WBC (4.5-11.0) K/mm3 RBC (3.65-5.03) M/mm3 Hgb 7.7 L (10.1-14.3) gm/dl Hct 25.9 L (30.3-42.9) % MCV (79-97) fl MCH (28-32) pg MCHC (30-34) % RDW (13.2-15.2) % Seg Neuts % (Manual) (40.0-70.0) % Seg Neutrophils # Man (1.8-7.7) K/mm3 Carbon Dioxide 21 L (22-30) mmol/L Creatinine 1.3 H (0.6-1.2) mg/dL Lactic Acid (0.7-2.0) mmol/L Albumin 3.7 L (3.9-5) g/dL Urine WBC (Auto) (0.0-6.0) /HPF U Epithel Cells (Auto) (0-13.0) /HPF Crossmatch See Detail All other labs normal. Ultrasound: pending CT scan - abdomen: report reviewed, image reviewed Assessment and Plan - Patient Problems (1) Tubo-ovarian abscess Current Visit: Yes Status: Acute Plan to address problem: CT scan was suspicious for tubo-ovarian abscess vs. hydrosalpinx. Admit to general medical floor. Start intravenous Rocephin/doxycycline/metronidazole. Blood cultures are pending. In lieu of fever and tachycardia, obtain lactic acid level to evaluate for early onset sepsis. If the clinical condition deteriorates, then may need diagnostic laparoscopy or possible operative laparoscopy for further evaluation and surgical management. (2) Menometrorrhagia Current Visit: Yes Status: Acute Plan to address problem: The etiology is likely secondary to the patient's fibroid uterus. Pelvic ultrasound ordered for this morning. I recommend endometrial biopsy as an outpatient. Thereafter, we will discuss medical vs. surgical treatment. (3) Anemia associated with acute blood loss Current Visit: Yes Status: Acute Plan to address problem: Blood transfusion was ordered. Repeat CBC tomorrow. (4) Pelvic pain Current Visit: Yes Status: Acute Plan to address problem: Etiology is likely secondary to tubo-ovarian abscess vs. hydrosalpinx. (5) Intramural uterine fibroid Current Visit: Yes Status: Acute Plan to address problem: Order pelvic ultrasound in the morning. This is likely the cause of the patient's menometrorrhagia. Endometrial biopsy as an outpatient. Thereafter, we will discuss medical vs. surgical treatment. (6) Elevated serum creatinine Current Visit: Yes Status: Acute Plan to address problem: Etiology is unknown. IV hydration with normal saline. Repeat BMP tomorrow morning.
[2022-04-26] MEDS: IBUPROFEN 800 MG TAB PO PRN ×2 (05:19→17:32)
[2022-04-26] MEDS: metroNIDAZOLE/NS 500 MG/100 ML 500 MG/100 ML BAG IV SCH ×2 (08:14→22:32)
[2022-04-26] MEDS: SODIUM CHLORIDE 0.9% 1000 ML 1,000 ML IV SCH ×2 (08:15→21:36)
[2022-04-26 09:13] LABS: BUN/Creatinine Ratio 6; Blood Urea Nitrogen 7 mg/dL (7-17); Calcium 8.9 mg/dL (8.4-10.2); Hemolysis Index 6
--- NOTE | 2022-04-26 09:14 | Electrocardiograph Report ---
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
[2022-04-26] MEDS: cefTRIAXone/NS 1 GM/50 ML 1 GM/50 ML BAG IV SCH (10:00)
[2022-04-26] MEDS ORDERED: DOXYCYCLINE HYCLATE 100 MG in SODIUM CHLORIDE 0.9% 250ML 250 ML IV SCH (10:00)
--- NOTE | 2022-04-26 14:44 | Ultrasound Report ---
ULTRASOUND PELVIS INDICATION / CLINICAL INFORMATION: Menometrorrhagia, Pelvic Pain, Hydrosalpinx vs TOA. TECHNIQUE: Transabdominal. Duplex Color Doppler used: Yes. COMPARISON: CT abdomen and pelvis performed yesterday and pelvic ultrasound 04/24/2022.. FINDINGS: UTERUS: - Appearance: Enlarged fibroid uterus. - Size (cm): 13.6 x 7.9 x 8.2 cm. - Endometrial Complex (if present): No significant abnormality.. Thickness in cm (if measured) = 1.0 cm. - Mass or cyst: Multiple uterine fibroids. The largest is again visualized in the anterior uterine romina dy measuring 3.8 cm, previously 4.5 cm. Difference is likely due to measuring technique. - Additional findings: None. RIGHT ADNEXA:The right ovary measures 4.5 x 3.8 x 3.0 cm. Previously visualized 2.6 cm ovarian cyst has resolved. Anechoic tubular structure is visualized in the right adnexa measuring 4.3 x 3.1 x 2.2 cm. Normal color Doppler blood flow. LEFT ADNEXA:The left ovary is not visualized. No significant adnexal abnormality. URINARY BLADDER: No significant abnormality. FREE FLUID: None. ADDITIONAL FINDINGS: None. IMPRESSION: 1. Tubular structure is again visualized in the right adnexa measuring up to 4.3 cm. Probably this is a hydrosalpinx though is nonspecific as discussed on recent CT report. Follow-up is suggested. 2. Simple right ovarian cyst has resolved. 3. Enlarged uterus with multiple fibroids measuring up to 3.8 cm. Scribed by: Felecia Kramer RDMS, [employer], KEKE Scribed: 04/26/2022 12:44 PM I have reviewed the images, agree with this report, and edited this report as needed. Signer Name: Filiberto Delaney MD Signed: 04/26/2022 2:40 PM Workstation Name: [id number]
[2022-04-27] MEDS: AZITHROMYCIN/NS 500 MG/250 ML 500 MG/250 ML BAG IV SCH (02:00)
--- NOTE | 2022-04-27 02:08 | Event Note ---
Date: 04/27/22 This patient is allergic to doxycycline. As such, pharmacy discontinued the intravenous doxycycline. Therefore, azithromycin IV ordered instead for macrolide coverage.
[2022-04-27 06:03] LABS: Basophils # (Auto) 0.1 K/mm3 (0.0-0.1); Basophils % (Auto) 0.4 % (0.0-1.8); Eosinophils # (Auto) 0.4 K/mm3 (0.0-0.4); Eosinophils % (Auto) 2.3 % (0.0-4.3); Hematocrit 23.7 % (30.3-42.9); Hemoglobin 7.1 gm/dl (10.1-14.3); Lymphocytes # (Auto) 2.3 K/mm3 (1.2-5.4); Lymphocytes % (Auto) 13.5 % (13.4-35.0); Mean Corpuscular HGB Conc 30 % (30-34); Monocytes # (Auto) 1.4 K/mm3 (0.0-0.8); Monocytes % (Auto) 7.9 % (0.0-7.3); Platelet Count 275 K/mm3 (140-440)
[2022-04-27 06:04] LABS: Mean Corpuscular Volume 68 fl (79-97); Red Cell Distribution Width 23.8 % (13.2-15.2)
[2022-04-27 06:20] LABS: BUN/Creatinine Ratio 7; Blood Urea Nitrogen 5 mg/dL (7-17); Hemolysis Index 3
[2022-04-27] MEDS: IBUPROFEN 800 MG TAB PO PRN ×2 (06:50→18:51)
[2022-04-27] MEDS ORDERED: SODIUM CHLORIDE 0.9% 500 ML 500 ML IV NR (08:30)
--- NOTE | 2022-04-27 08:35 | Event Note ---
Date: 04/27/22 Today's hemoglobin is 7.1. As such, transfuse 3 units of packed red blood cells. White blood cell count is still elevated with a left shift. Continue intravenous Rocephin/Zithromax/Flagyl. Possible discharge tomorrow on oral Omnicef/Zithromax/Flagyl. Repeat CBC tomorrow morning. Creatinine is improved. Acute kidney injury is no longer suspected. Lactic acid is improved. Early onset sepsis is no longer suspected.
--- NOTE | 2022-04-27 08:40 | Electrocardiograph Report ---
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
[2022-04-27] MEDS: SODIUM CHLORIDE 0.9% 1000 ML 1,000 ML IV SCH ×2 (09:52→15:03)
[2022-04-27] MEDS: cefTRIAXone/NS 1 GM/50 ML 1 GM/50 ML BAG IV SCH (09:54)
[2022-04-27] MEDS: ACETAMINOPHEN 325 MG TAB PO PRN (11:33)
[2022-04-27] MEDS: metroNIDAZOLE/NS 500 MG/100 ML 500 MG/100 ML BAG IV SCH (15:02)
[2022-04-27 19:52] LABS: Hematocrit 28.5 % (30.3-42.9); Hemoglobin 8.7 gm/dl (10.1-14.3)
[2022-04-28] MEDS: AZITHROMYCIN/NS 500 MG/250 ML 500 MG/250 ML BAG IV SCH (01:45)
[2022-04-28] MEDS: IBUPROFEN 800 MG TAB PO PRN (02:14)
[2022-04-28] MEDS: metroNIDAZOLE/NS 500 MG/100 ML 500 MG/100 ML BAG IV SCH (03:38)
[2022-04-28] MEDS: ACETAMINOPHEN 325 MG TAB PO PRN (05:45)
[2022-04-28 08:21] LABS: Hematocrit 30.5 % (30.3-42.9); Hemoglobin 9.3 gm/dl (10.1-14.3); Mean Corpuscular HGB Conc 31 % (30-34); Mean Corpuscular Volume 72 fl (79-97); Platelet Count 263 K/mm3 (140-440); Red Blood Count 4.21 M/mm3 (3.65-5.03)
[2022-04-28] MEDS: cefTRIAXone/NS 1 GM/50 ML 1 GM/50 ML BAG IV SCH (09:45)
[2022-04-28] MEDS: SODIUM CHLORIDE 0.9% 1000 ML 1,000 ML IV SCH (09:46)
--- NOTE | 2022-04-28 10:28 | Event Note ---
Date: 04/28/22 Currently patient is hemodynamically stable. stable vital signs WBC decreased to 11.9 H/H increased to 9.33/30.5 Will discharge today with oral antibiotics, Ibuprofen, and Iron She will follow up with [facility] in 1wk
[2022-04-28 11:43] LABS: Band Neutrophils # (Manual) 0.1 K/mm3; Basophils % (Manual) 0 % (0.0-1.8); Total Cells Counted 100
[2022-04-28 11:44] LABS: Tear Drop Cells Few
[2022-04-28 11:45] LABS: Target Cells Few
[2022-04-28 11:47] LABS: Platelet Estimate Consistent w Auto
[2022-04-28 12:10] VITALS: BP 142/84
== END 2022-04-28 13:55 | disposition home or self-care (01) | DRG 758 ==
LOC: ED 10:05 → 3A 04-26 01:20 → OB 04-26 02:19
PROVIDERS: ADMIT Obstetrics & Gynecology Gynecology; ATTEND Obstetrics & Gynecology Gynecology
PROC: 30233N1 Transfusion of Nonautologous Red Blood Cells into Peripheral Vein, Percutaneous Approach (ICD-10-PCS; principal; 2022-04-27)
DX: N70.93 Salpingitis and oophoritis, unspecified (principal); N39.0 Urinary tract infection, site not specified; D62 Acute posthemorrhagic anemia; N92.1 Excessive and frequent menstruation with irregular cycle; R10.2 Pelvic and perineal pain; D25.9 Leiomyoma of uterus, unspecified; Z20.822 Contact with and (suspected) exposure to COVID-19
CPT/HCPCS: 36415; 71045; 74177; 76830; 76856; 80048; 80053; 81001; 82140; 82270; 83735; 84443; 85007; 85014; 85018; 85025; 86850; 86900; 86901; 86920; 87040; 87086; 87591; 93005; G0378; J3490; J7517; J0456; J0696; J2270; J7030; J7040; J7050; P9016; Q9967; U0003